=== PATIENT | female | born 1990 | race American Indian/Alaskan Native ===

== ENCOUNTER 2022-05-28 08:23 | Inpatient (IN) | payer OTHER ==
--- NOTE | 2022-05-28 09:34 | Ultrasound Report ---
US OB limited INDICATION: Cervical Length, MIKEL Pt is 22+ wks. TECHNIQUE: Transabdominal. COMPARISON: None available. FINDINGS: There is a single intrauterine . Heart Rate: 155 beats per minute. Position: breech. Amniotic Fluid Volume: normal Amniotic Fluid Index (MIKEL) in cm (if calculated): Largest pocket is 4.1 cm. Cervix: Measures 2.4 cm Low lying posterior placenta. IMPRESSION: 1. The cervix measures 2.4 cm. No funneling is seen on today's exam. Signer Name: Armani Kern MD Signed: 05/28/2022 9:30 AM Workstation Name: [id number]
[2022-05-28] MEDS ORDERED: LACTATED RINGERS 500 ML IV ONE (10:00)
[2022-05-28] MEDS ORDERED: BUPIVACAINE-EPINEPHRINE/PF 0.5%-1:200,000 (10 ML) VIAL INFILTRATI ONE (13:45)
[2022-05-28] MEDS ORDERED: LIDOCAINE 2%/EPINEPHRINE 1:200,000 VIAL (20 ML) INFILTRATI ONE (13:47)
--- NOTE | 2022-05-28 14:02 | Event Note ---
Date: 05/28/22 To patient room for SSE. Speculum placed and fluid pooling with valsalva. Fluiud collected. Dry prep +ferning and nitrazine positive. Previabel PPROM. Will consult MFM and NICU. Consider admission to observation.
--- NOTE | 2022-05-28 14:03 | History and Physical Report ---
History of Present Illness Date of examination: 05/28/22 Date of admission: 05/28/2022 Chief complaint: My water broke History of present illness: Patient is a at 22w0d presenting with LOF. Notes early this morning she noticed leakage of fluid that would not stop. Went to restroom and wiped , but noted continued fluid coming from her vagina. Denies contraction or vaginal bleeding. +FM Past History Past Medical History: no pertinent history Past Surgical History: section, D&C [employer] History: gonorrhea Family/Genetic History: hypertension, cancer Social history: single - Obstetrical History Expected Date of Delivery: 10/01/22 Actual Gestation: 22 Week(s) 0 Day(s) : 6 Hx # Term Pregnancies: 1 Number of Pregnancies: 1 Spontaneous Abortions: 1 Induced : 2 Number of Living Children: 2 Medications and Allergies Allergies Allergy/AdvReac Type Severity Reaction Status Date / Time No Known Allergies Allergy Unverified 05/28/22 09:21 Review of Systems Genitourinary: leakage of fluid - Vital Signs Vital signs: Vital Signs Pulse Pulse Ox 94 H 100 05/28/22 09:17 05/28/22 09:17 Temp Pulse Resp BP Pulse Ox 98.8 F 91 H 18 111/62 100 05/28/22 09:18 05/28/22 11:36 05/28/22 09:18 05/28/22 09:18 05/28/22 11:36 - Physical Exam Abdomen: Positive: normal appearance, soft, normal bowel sounds. Negative: distention, tenderness Genitourinary (Female): Positive: normal external genitalia Vulva: both: normal Vagina: Positive: other (pooling of fluid noted in the vault) Cervix: Positive: other (visibly dilated to 1 cm with part noted) - Obstetrical FHR: auscultation normal Uterine Contraction Pattern: Absent Results Result Diagrams: 05/28/22 18:21 All other labs normal. Assessment and Plan - Patient Problems (1) Premature rupture of membranes (PROM) affecting sixth Current Visit: Yes Status: Acute Plan to address problem: ROM + negative. MVP 4.1 cm Pooling of fluid noted on exam. Nitrazine positive. Ferning noted on Dry prep Findings reviewed with patient. Discussed is previable, meaning survival is unlikely outside of womb Reviewed with patient various outcomes including expectant management at home, possible admission for latency abx, steroids, and MgSO4, etc. Howevere plan will be dependent on findings from consultants. NICU consulted to discuss outcomes and also feasibility of resuscitation MFM consulted for further recommendations based on NICU recs (2) 22 weeks gestation of Current Visit: Yes Status: Acute
[2022-05-28] MEDS ORDERED: ACETAMINOPHEN 325 MG TAB PO PRN (16:05)
[2022-05-28] MEDS ORDERED: oxyCODONE /ACETAMINOPHEN 5-325MG TAB PO PRN (16:05)
--- NOTE | 2022-05-28 18:02 | Ultrasound Report ---
ULTRASOUND OBSTETRIC follow-up INDICATION / CLINICAL INFORMATION: NEED U/S FOR EFW.. Clinical Gestational Age (GA) in weeks, days: 22, 0 TECHNIQUE: Transabdominal. COMPARISON: Ultrasound performed earlier on 05/28/2022 which was performed to evaluate fluid index and cervix. FINDINGS: Single intrauterine . Biparietal Diameter = 5.1 cm = 21, 3 weeks, days Head Circumference = 20.2 cm = 22, 2 weeks, days Abdominal Circumference = 18.9 cm = 23, 4 weeks, days Femur Length = 3.8 cm = 23, 4 weeks, days Average Ultrasound Age (AUA) = 22, 3 weeks, days Heart Rate: 152 beats per minute. Estimated Weight in grams (if calculated): 538 Estimated Weight Growth Percentile (if calculated): 84 Position: breech. Cervix is not well visualized on this transabdominal exam. Placenta: posterior Amniotic Fluid Volume: Appears subjectively decreased IMPRESSION: 1. Single, living intrauterine with estimated sonographic age of 22, 3 weeks, days. 2. Estimated weight is 538 g Signer Name: Gama Silva MD Signed: 05/28/2022 5:58 PM Workstation Name: [id number]
[2022-05-28 18:39] LABS: Basophils # (Auto) 0.2 K/mm3 (0.0-0.1); Basophils % (Auto) 0.9 % (0.0-1.8); Eosinophils % (Auto) 0.2 % (0.0-4.3); Hematocrit 31.7 % (30.3-42.9); Hemoglobin 10.5 gm/dl (10.1-14.3); Lymphocytes # (Auto) 1.8 K/mm3 (1.2-5.4); Lymphocytes % (Auto) 10.6 % (13.4-35.0); Mean Corpuscular HGB Conc 33 % (30-34); Mean Corpuscular Volume 94 fl (79-97); Monocytes % (Auto) 5.8 % (0.0-7.3); Platelet Count 234 K/mm3 (140-440); Red Blood Count 3.38 M/mm3 (3.65-5.03); Red Cell Distribution Width 12.7 % (13.2-15.2)
--- NOTE | 2022-05-28 20:04 | Event Note ---
Date: 05/28/22 (SROM at 22 wks) Pt doing well. Denies vaginal bleeding, abdominal pain/contractions. Consult order placed and NICU aware of patient being on labor and delivery. HEALTH AND WELLNESS ADVISOR will come and speak to patient.
[2022-05-28] MEDS ORDERED: SODIUM CHLORIDE 0.9% 1000 ML 0 ML ONE (21:23)
--- NOTE | 2022-05-28 22:45 | Consultation ---
Consult Note - Parent Education I met with parent(s) and discussed the following:: Need for NICU admission, Poss ible need for intubation and surfactant or other resp support, Temperature regulation, Head ultrasounds to evaluate IVH, Eye exams for ROP screening, Possible need for IV fluids/TPN and IV antibiotics, Possible need for umbilical lines, Importance of providing breast milk & encouraged pumping aft delivery, Donor breast milk if baby meets criteria after , Slow feeding advancement and monitoring of tolerance. NG/OG feeds, Need to monitor for jaundice, Data for survival & survival without significant co-morbidities Parent(s) demonstrated understanding of all the information:: Yes Additional Comment: Spoke with mother at length. She is expecting a boy, "Ayannar". NICHD statistics calculations for extremely outcomes given to mother and explained. She verbalizes understanding. She is anticipating maternal- medicine consult tomorrow. Currently, denies contractions, reports active movement. EFW from ultrasound today is 538 gms. Assessment and Plan - Plan Plan: Agree with Mag & steroids Will attend delivery Please call NICU with questions
[2022-05-28] MEDS ORDERED: LACTATED RINGERS 1,000 ML ONE (23:10)
[2022-05-29] MEDS: diphenhydrAMINE 25 MG CAP PO PRN ×2 (00:20→21:56)
[2022-05-29 00:22] LABS: Mucus,Urine FEW /HPF
[2022-05-29 00:33] LABS: Color,Urine Yellow (Yellow)
[2022-05-29 00:34] LABS: Bilirubin,Urine Negative (Negative); Blood,Urine Negative (Negative); Protein,Urine <15 mg/dL mg/dL (Negative); Urobilinogen,Urine < 2.0 mg/dL (<2.0)
--- NOTE | 2022-05-29 06:32 | Progress Note ---
Assessment and Plan A: 32 y.o. @ 22.1 wks, PPROM. - Patient Problems (1) 22 weeks gestation of Current Visit: Yes Status: Acute Plan to address problem: Continue with antepartum surveillance. FHR Dopplers per shift. (2) Premature rupture of membranes (PROM) affecting sixth Current Visit: Yes Status: Acute Plan to address problem: Monitor maternal temperature. Awaiting AMFM evaluation. s/p NICU consult. No vaginal exams unless necessary. Subjective - Subjective Date of service: 05/29/22 Principal diagnosis: IUP @ 22.1 wks, SROM Interval history: Pt with some nausea this AM. Will medicate for nausea. Pt continues to deny vaginal bleeding, contractions. Still with some LOF. Patient reports: movement normal, no new complaints, no loss of fluid, no vaginal bleeding, no contractions Objective - Vital Signs Vital Signs: Vital Signs - 12hr 05/29/22 00:25 Temperature 98.4 F Respiratory 18 Rate O2 Sat by Pulse 98 Oximetry - Exam Breasts: deferred Cardiovascular: Regular rate Lungs: Normal air movement Abdomen: Present: soft FHR: other (FHR +) Uterine Contraction Monitor Mode: External Uterine Contraction Pattern: Absent - Labs Labs: Abnormal Labs 05/28/22 05/29/22 18:21 Unknown WBC 16.6 H RBC 3.38 L RDW 12.7 L Lymph % (Auto) 10.6 L [place] # (Auto) 1.0 H Baso # (Auto) 0.2 H Seg Neutrophils % 82.5 H Seg Neutrophils # 13.7 H Urine pH 8.0 H Laboratory Results - last 24 hr 05/28/22 05/28/22 05/28/22 09:25 18:21 23:55 WBC 16.6 H RBC 3.38 L Hgb 10.5 Hct 31.7 MCV 94 MCH 31 MCHC 33 RDW 12.7 L Plt Count 234 Lymph % (Auto) 10.6 L [place] % (Auto) 5.8 Eos % (Auto) 0.2 Baso % (Auto) 0.9 Lymph # (Auto) 1.8 [place] # (Auto) 1.0 H Eos # (Auto) 0.0 Baso # (Auto) 0.2 H Seg Neutrophils % 82.5 H Seg Neutrophils # 13.7 H Urine Color Urine Turbidity Urine pH Ur Specific [place] Urine Protein Urine Glucose (UA) Urine Ketones Urine Blood Urine Nitrite Ur Reducing Substances Urine Bilirubin Urine Ictotest Urine Urobilinogen Ur Leukocyte Esterase Urine WBC (Auto) Urine RBC (Auto) U Epithel Cells (Auto) Urine Mucus Membranes Rupture Negative Blood Type A POSITIVE Antibody Screen Negative 05/29/22 Unknown WBC RBC Hgb Hct MCV MCH MCHC RDW Plt Count Lymph % (Auto) [place] % (Auto) Eos % (Auto) Baso % (Auto) Lymph # (Auto) [place] # (Auto) Eos # (Auto) Baso # (Auto) Seg Neutrophils % Seg Neutrophils # Urine Color Yellow Urine Turbidity Clear Urine pH 8.0 H Ur Specific [place] 1.005 Urine Protein <15 mg/dl Urine Glucose (UA) Negative Urine Ketones 100 Urine Blood Negative Urine Nitrite Negative Ur Reducing Substances Not Reportable Urine Bilirubin Negative Urine Ictotest Not Reportable Urine Urobilinogen < 2.0 Ur Leukocyte Esterase Negative Urine WBC (Auto) 6.0 Urine RBC (Auto) 1.0 U Epithel Cells (Auto) 6.0 Urine Mucus Few Membranes Rupture Blood Type Antibody Screen
[2022-05-29] MEDS ORDERED: SIMETHICONE 80 MG CHEW TAB PO PRN (10:00)
[2022-05-29] MEDS: AMPICILLIN/NS 2 GM/100 ML 2 GM/100 ML BAG IV SCH ×3 (11:47→19:49)
[2022-05-29] MEDS: ERYTHROMYCIN LACTOBIONATE 250 MG in SODIUM CHLORIDE 0.9% 100 ML IV SCH ×3 (12:42→21:57)
[2022-05-29] MEDS: ONDANSETRON 4 MG/2 ML INJ IV PRN ×2 (13:38→23:16)
[2022-05-29] MEDS: ALUM-MAG HYDROXIDE-SIMETHICONE 200-200-20MG/5ML ORAL LIQD 30 ML PO PRN (13:38)
[2022-05-29] MEDS ORDERED: LACTATED RINGERS 1,000 ML ONE (13:41)
--- NOTE | 2022-05-29 16:44 | Event Note ---
Date: 05/29/[address] Hay. Will proceed with steroids in addition to antibx that have already been started. NICU plans for full reces efforts and pt desires this. Full consultation to follow. I d/w pt that should the labor progress and she remains breech, this could mean a stat c/s. Pt expressed understanding and all questions were addressed and answered.
[2022-05-29] MEDS: BETAMET ACET/BETAMET NA PH 6 MG/ML INJ 5 ML MDV IM SCH (19:41)
[2022-05-29] MEDS ORDERED: MAGNESIUM HYDROXIDE (MOM) ORAL LIQD UDC PO PRN (22:00)
[2022-05-30] MEDS: AMPICILLIN/NS 2 GM/100 ML 2 GM/100 ML BAG IV SCH ×3 (02:09→17:51)
[2022-05-30] MEDS: ERYTHROMYCIN LACTOBIONATE 250 MG in SODIUM CHLORIDE 0.9% 100 ML IV SCH ×4 (04:18→23:05)
--- NOTE | 2022-05-30 06:07 | Progress Note ---
Assessment and Plan A: 32 y.o. @ 22.2 wks, PPROM. - Patient Problems (1) 22 weeks gestation of Current Visit: Yes Status: Acute Plan to address problem: Continue with FHR per shift. (2) Premature rupture of membranes (PROM) affecting sixth Current Visit: Yes Status: Acute Plan to address problem: Continue with antibiotics as ordered. Continue to monitor maternal temperature. Steroids ordered. - # 1 dose @ 194 on 05/29. - #2 dose due @ 1940 on 05/30. s/p NICU consult. - Agree with Mag & steroids - Will attend delivery s/p AMFM consult. - Awaiting full consultation and recommendations. Subjective - Subjective Date of service: 05/30/22 Principal diagnosis: IUP @ 22.2 wks, SROM Interval history: Pt continues to deny vaginal bleeding, contractions. Still with some LOF. Patient reports: movement normal, no new complaints, no loss of fluid, no vaginal bleeding, no contractions Objective - Vital Signs Vital Signs: Vital Signs - 12hr 05/29/22 05/29/22 05/29/22 19:16 19:18 19:19 Temperature 98.7 F Pulse Rate 94 H 89 Respiratory 14 Rate Blood Pressure 102/56 Blood Pressure 102/56 [Left] O2 Sat by Pulse 95 99 Oximetry O2 Sat by Pulse Oximetry [ Posterior Bilateral Throughout] 05/29/22 05/29/22 05/29/22 19:21 19:23 19:26 Temperature Pulse Rate 92 H 95 H Respiratory Rate Blood Pressure Blood Pressure [Left] O2 Sat by Pulse 99 100 Oximetry O2 Sat by Pulse 100 Oximetry [ Posterior Bilateral Throughout] 05/29/22 05/29/22 05/29/22 19:31 19:36 19:41 Temperature Pulse Rate 97 H 108 H 105 H Respiratory Rate Blood Pressure Blood Pressure [Left] O2 Sat by Pulse 99 100 100 Oximetry O2 Sat by Pulse Oximetry [ Posterior Bilateral Throughout] 05/29/22 05/29/22 05/29/22 19:46 19:51 19:56 Temperature Pulse Rate 97 H 90 96 H Respiratory Rate Blood Pressure Blood Pressure [Left] O2 Sat by Pulse 100 100 100 Oximetry O2 Sat by Pulse Oximetry [ Posterior Bilateral Throughout] 05/29/22 05/29/22 05/30/22 23:19 23:20 04:20 Temperature 98.1 F Pulse Rate 92 H 94 H 86 Respiratory 14 Rate Blood Pressure 115/67 105/57 Blood Pressure 115/67 [Left] O2 Sat by Pulse 79 L 98 Oximetry O2 Sat by Pulse Oximetry [ Posterior Bilateral Throughout] 05/30/22 05/30/22 04:21 04:22 Temperature 98.2 F Pulse Rate 91 H 87 Respiratory 14 Rate Blood Pressure Blood Pressure 105/57 [Left] O2 Sat by Pulse 98 97 Oximetry O2 Sat by Pulse Oximetry [ Posterior Bilateral Throughout] - Exam Narrative Exam: No contractions noted on TOCO monitor. Breasts: deferred Cardiovascular: Regular rate Lungs: Normal air movement Abdomen: Present: normal appearance, soft Uterus: Present: normal FHR: other (+ FHR) Uterine Contraction Pattern: Absent - Labs Labs: Abnormal Labs 05/28/22 05/29/22 18:21 Unknown WBC 16.6 H RBC 3.38 L RDW 12.7 L Lymph % (Auto) 10.6 L [place] # (Auto) 1.0 H Baso # (Auto) 0.2 H Seg Neutrophils % 82.5 H Seg Neutrophils # 13.7 H Urine pH 8.0 H Laboratory Results - last 24 hr 05/29/22 10:40 SARS-CoV-2 (PCR) Negative
[2022-05-30] MEDS: PRENATAL VIT27-FE FUMARATE-FOLIC ACID VIT TAB PO SCH (09:51)
[2022-05-30] MEDS: ONDANSETRON 4 MG/2 ML INJ IV PRN ×2 (09:51→15:33)
[2022-05-30] MEDS: ALUM-MAG HYDROXIDE-SIMETHICONE 200-200-20MG/5ML ORAL LIQD 30 ML PO PRN (15:33)
--- NOTE | 2022-05-30 17:00 | Progress Note ---
Assessment and Plan A: IUP at 22 2/7 weeks gestation US EFW 1lb 3oz , breech ( 05/28/22) PROM suspected Cervical incompetence Low lying placenta Rec : Monitor for labor, chorioamnionitis Complete course of BMZ and latency antibiotics Growth scans q3 weeks Twice weekly testing beginning at 28 weeks gestation Assess placentation at her next growth scan Delivery at 34 weeks , sooner if indicated Reglan /phenergan prn Subjective - Subjective Date of service: 05/30/22 Principal diagnosis: IUP @ 22.2 wks, SROM Interval history: Reports N/V unresponsive to Zofran Denied abdominal pain , cramping or bleeding Patient reports: movement normal, no new complaints, no loss of fluid, no vaginal bleeding, no contractions Objective - Vital Signs Vital Signs: Vital Signs - 12hr 05/30/22 05/30/22 05/30/22 08:01 08:02 08:05 Temperature 98.3 F Pulse Rate 93 H 95 H Respiratory 14 Rate Blood Pressure 108/67 Blood Pressure 108/67 [Left] Blood Pressure [Right] O2 Sat by Pulse 100 100 Oximetry O2 Sat by Pulse 99 Oximetry [ Posterior Bilateral Throughout] 05/30/22 05/30/22 05/30/22 08:07 08:12 11:01 Temperature Pulse Rate 96 H 95 H 107 H Respiratory Rate Blood Pressure Blood Pressure [Left] Blood Pressure [Right] O2 Sat by Pulse 99 100 100 Oximetry O2 Sat by Pulse Oximetry [ Posterior Bilateral Throughout] 05/30/22 05/30/22 05/30/22 11:06 11:11 11:16 Temperature Pulse Rate 97 H 109 H 96 H Respiratory Rate Blood Pressure Blood Pressure [Left] Blood Pressure [Right] O2 Sat by Pulse 100 100 100 Oximetry O2 Sat by Pulse Oximetry [ Posterior Bilateral Throughout] 05/30/22 05/30/22 05/30/22 11:21 11:26 11:31 Temperature Pulse Rate 97 H 104 H 98 H Respiratory Rate Blood Pressure Blood Pressure [Left] Blood Pressure [Right] O2 Sat by Pulse 100 100 99 Oximetry O2 Sat by Pulse Oximetry [ Posterior Bilateral Throughout] 05/30/22 05/30/22 05/30/22 11:44 11:49 11:54 Temperature Pulse Rate 105 H 112 H 106 H Respiratory Rate Blood Pressure Blood Pressure [Left] Blood Pressure [Right] O2 Sat by Pulse 100 99 100 Oximetry O2 Sat by Pulse Oximetry [ Posterior Bilateral Throughout] 05/30/22 05/30/22 05/30/22 11:59 12:04 12:09 Temperature Pulse Rate 100 H 105 H 98 H Respiratory Rate Blood Pressure Blood Pressure [Left] Blood Pressure [Right] O2 Sat by Pulse 100 100 100 Oximetry O2 Sat by Pulse Oximetry [ Posterior Bilateral Throughout] 05/30/22 05/30/22 05/30/22 12:14 12:19 12:24 Temperature Pulse Rate 98 H 108 H 96 H Respiratory Rate Blood Pressure Blood Pressure [Left] Blood Pressure [Right] O2 Sat by Pulse 100 100 100 Oximetry O2 Sat by Pulse Oximetry [ Posterior Bilateral Throughout] 05/30/22 05/30/22 05/30/22 12:29 14:01 14:06 Temperature Pulse Rate 101 H 95 H 92 H Respiratory Rate Blood Pressure Blood Pressure [Left] Blood Pressure [Right] O2 Sat by Pulse 100 100 100 Oximetry O2 Sat by Pulse Oximetry [ Posterior Bilateral Throughout] 05/30/22 05/30/22 05/30/22 14:11 14:16 14:21 Temperature 98.1 F Pulse Rate 92 H 101 H 117 H Respiratory 16 Rate Blood Pressure 115/60 Blood Pressure [Left] Blood Pressure 115/60 [Right] O2 Sat by Pulse 100 100 100 Oximetry O2 Sat by Pulse Oximetry [ Posterior Bilateral Throughout] 05/30/22 05/30/22 05/30/22 14:26 14:31 14:36 Temperature Pulse Rate 93 H 89 90 Respiratory Rate Blood Pressure Blood Pressure [Left] Blood Pressure [Right] O2 Sat by Pulse 100 100 100 Oximetry O2 Sat by Pulse Oximetry [ Posterior Bilateral Throughout] 05/30/22 05/30/22 05/30/22 14:41 14:46 14:51 Temperature Pulse Rate 101 H 95 H 98 H Respiratory Rate Blood Pressure Blood Pressure [Left] Blood Pressure [Right] O2 Sat by Pulse 100 100 100 Oximetry O2 Sat by Pulse Oximetry [ Posterior Bilateral Throughout] 05/30/22 05/30/22 05/30/22 14:56 15:01 15:03 Temperature Pulse Rate 97 H 89 92 H Respiratory Rate Blood Pressure Blood Pressure [Left] Blood Pressure [Right] O2 Sat by Pulse 100 100 91 Oximetry O2 Sat by Pulse Oximetry [ Posterior Bilateral Throughout] 05/30/22 05/30/22 15:08 15:16 Temperature Pulse Rate 70 110 H Respiratory Rate Blood Pressure Blood Pressure [Left] Blood Pressure [Right] O2 Sat by Pulse 77 L 77 L Oximetry O2 Sat by Pulse Oximetry [ Posterior Bilateral Throughout] - Exam Narrative Exam: appears uncomfortable peripad- dried brown d/c , no blood - Labs Labs: Abnormal Labs 05/28/22 05/29/22 18:21 Unknown WBC 16.6 H RBC 3.38 L RDW 12.7 L Lymph % (Auto) 10.6 L [place] # (Auto) 1.0 H Baso # (Auto) 0.2 H Seg Neutrophils % 82.5 H Seg Neutrophils # 13.7 H Urine pH 8.0 H - Results US- obstetric: report reviewed
[2022-05-30] MEDS: METOCLOPRAMIDE 10 MG/2 ML INJ IV PRN (17:11)
[2022-05-30] MEDS ORDERED: PROMETHAZINE 25 MG TAB PO PRN (20:07)
[2022-05-30] MEDS: BETAMET ACET/BETAMET NA PH 6 MG/ML INJ 5 ML MDV IM SCH (20:20)
[2022-05-30] MEDS: PROMETHAZINE 25 MG RECT SUPP PR PRN (22:12)
[2022-05-30] MEDS: LACTATED RINGERS 1,000 ML IV SCH (23:05)
[2022-05-31] MEDS: METOCLOPRAMIDE 10 MG/2 ML INJ IV PRN ×2 (01:42→11:39)
[2022-05-31] MEDS: ONDANSETRON 4 MG/2 ML INJ IV PRN (04:33)
[2022-05-31] MEDS: AMPICILLIN/NS 2 GM/100 ML 2 GM/100 ML BAG IV SCH ×2 (04:34→12:38)
--- NOTE | 2022-05-31 05:16 | Progress Note ---
Assessment and Plan A: 32 y.o. @ 22.3 wks, PPROM. - Patient Problems (1) 22 weeks gestation of Current Visit: Yes Status: Acute Plan to address problem: doppler q 4 hrs. (2) Premature rupture of membranes (PROM) affecting sixth Current Visit: Yes Status: Acute Plan to address problem: Continue with antibiotics as ordered. Continue to monitor maternal temperature. [facility] recommendations as follows: Monitor for labor, chorioamnionitis Complete course of BMZ and latency antibiotics Growth scans q3 weeks: last completed on 05/28 1lb 3ozs. Next ordered for 06/14 Twice weekly testing beginning at 28 weeks gestation Assess placentation at her next growth scan: ordered next on 06/14 Delivery at 34 weeks , sooner if indicated Reglan /phenergan prn Subjective - Subjective Date of service: 05/31/22 Principal diagnosis: IUP @ 22.3 wks, SROM Interval history: Denies vaginal bleeding, abdominal pain/contractions/cramping. There is positive movement. Patient reports: loss of fluid, movement normal Objective - Vital Signs Vital Signs: Vital Signs - 12hr 05/30/22 05/30/22 05/30/22 17:22 17:49 20:26 Temperature 98.3 F Pulse Rate 62 84 Respiratory 14 Rate Blood Pressure 120/64 Blood Pressure 120/64 [Left] O2 Sat by Pulse 64 L 74 L 100 Oximetry O2 Sat by Pulse Oximetry [ Posterior Bilateral Throughout] 05/30/22 05/30/22 05/30/22 20:31 20:36 20:41 Temperature Pulse Rate 79 82 82 Respiratory Rate Blood Pressure Blood Pressure [Left] O2 Sat by Pulse 100 99 100 Oximetry O2 Sat by Pulse Oximetry [ Posterior Bilateral Throughout] 05/30/22 05/30/22 05/30/22 20:46 20:49 20:51 Temperature Pulse Rate 101 H 82 Respiratory Rate Blood Pressure Blood Pressure [Left] O2 Sat by Pulse 99 99 Oximetry O2 Sat by Pulse 100 Oximetry [ Posterior Bilateral Throughout] 05/30/22 05/30/22 05/30/22 20:56 21:00 21:14 Temperature Pulse Rate 82 92 H 84 Respiratory Rate Blood Pressure Blood Pressure [Left] O2 Sat by Pulse 100 93 97 Oximetry O2 Sat by Pulse Oximetry [ Posterior Bilateral Throughout] 05/30/22 05/30/22 05/30/22 21:19 21:24 21:29 Temperature Pulse Rate 83 87 83 Respiratory Rate Blood Pressure Blood Pressure [Left] O2 Sat by Pulse 100 99 99 Oximetry O2 Sat by Pulse Oximetry [ Posterior Bilateral Throughout] 05/30/22 05/30/22 05/30/22 21:34 21:39 21:44 Temperature Pulse Rate 100 H 87 83 Respiratory Rate Blood Pressure Blood Pressure [Left] O2 Sat by Pulse 98 100 99 Oximetry O2 Sat by Pulse Oximetry [ Posterior Bilateral Throughout] 05/30/22 05/30/22 05/30/22 21:49 21:54 21:59 Temperature Pulse Rate 81 84 85 Respiratory Rate Blood Pressure Blood Pressure [Left] O2 Sat by Pulse 99 98 99 Oximetry O2 Sat by Pulse Oximetry [ Posterior Bilateral Throughout] 05/30/22 05/31/22 05/31/22 22:03 01:47 01:48 Temperature 98.0 F Pulse Rate 77 96 H 96 H Respiratory 14 Rate Blood Pressure 106/61 Blood Pressure 106/61 [Left] O2 Sat by Pulse 84 99 99 Oximetry O2 Sat by Pulse Oximetry [ Posterior Bilateral Throughout] 05/31/22 05/31/22 05/31/22 01:52 01:57 02:02 Temperature Pulse Rate 98 H 86 91 H Respiratory Rate Blood Pressure Blood Pressure [Left] O2 Sat by Pulse 100 99 98 Oximetry O2 Sat by Pulse Oximetry [ Posterior Bilateral Throughout] 05/31/22 05/31/22 05/31/22 02:07 02:12 02:17 Temperature Pulse Rate 89 86 92 H Respiratory Rate Blood Pressure Blood Pressure [Left] O2 Sat by Pulse 98 99 98 Oximetry O2 Sat by Pulse Oximetry [ Posterior Bilateral Throughout] 05/31/22 05/31/22 05/31/22 02:22 02:27 02:32 Temperature Pulse Rate 96 H 85 87 Respiratory Rate Blood Pressure Blood Pressure [Left] O2 Sat by Pulse 98 99 98 Oximetry O2 Sat by Pulse Oximetry [ Posterior Bilateral Throughout] 05/31/22 05/31/22 05/31/22 02:37 02:42 02:47 Temperature Pulse Rate 97 H 88 92 H Respiratory Rate Blood Pressure Blood Pressure [Left] O2 Sat by Pulse 98 98 97 Oximetry O2 Sat by Pulse Oximetry [ Posterior Bilateral Throughout] 05/31/22 05/31/22 05/31/22 02:52 02:57 03:02 Temperature Pulse Rate 83 95 H 88 Respiratory Rate Blood Pressure Blood Pressure [Left] O2 Sat by Pulse 99 97 98 Oximetry O2 Sat by Pulse Oximetry [ Posterior Bilateral Throughout] 05/31/22 05/31/22 05/31/22 03:07 03:12 03:16 Temperature Pulse Rate 87 85 59 L Respiratory Rate Blood Pressure Blood Pressure [Left] O2 Sat by Pulse 99 98 73 L Oximetry O2 Sat by Pulse Oximetry [ Posterior Bilateral Throughout] 05/31/22 03:18 Temperature Pulse Rate 62 Respiratory Rate Blood Pressure Blood Pressure [Left] O2 Sat by Pulse 90 Oximetry O2 Sat by Pulse Oximetry [ Posterior Bilateral Throughout] - Exam Narrative Exam: Pt remains afebrile. Cardiovascular: Regular rate Lungs: Normal air movement Abdomen: Present: normal appearance, soft FHR: auscultation normal (FHR +) Uterine Contraction Monitor Mode: External (TOCO with no contractions seen.) Uterine Contraction Pattern: Absent - Labs Labs: Abnormal Labs 05/28/22 05/29/22 18:21 Unknown WBC 16.6 H RBC 3.38 L RDW 12.7 L Lymph % (Auto) 10.6 L [place] # (Auto) 1.0 H Baso # (Auto) 0.2 H Seg Neutrophils % 82.5 H Seg Neutrophils # 13.7 H Urine pH 8.0 H
[2022-05-31] MEDS: PROMETHAZINE 25 MG RECT SUPP PR PRN (06:42)
[2022-05-31] MEDS: ERYTHROMYCIN LACTOBIONATE 250 MG in SODIUM CHLORIDE 0.9% 100 ML IV SCH ×2 (06:42→13:32)
[2022-05-31] MEDS: LACTATED RINGERS 1,000 ML IV SCH (06:48)
--- NOTE | 2022-05-31 09:43 | Progress Note ---
Assessment and Plan Patient states she's aware of POC and she did her research before presenting. Stated the following: * States NICU will do everything possible to "save" her baby however this baby may b/c it's too small * States she know she (pt) needs to be monitor for signs of " "sepsis" * States she will stay here until 24weeks than possible discharge home. She was informed this baby may be born w/o a heart beat with current monitoring, she declines continuous monitoring at this time. Also discussed current staff situation. Options were reviewed. She desires to continue current POC and monitoring No s/s chorioamnionitis at this time. Steroid completed 05/30 Currently receiving Ampicillin 2gm IV q6hrs, ( 6/8doses given so far) and Erythromycin 250mg IV q6hors (6/8 doses received so far). Will start Amoxicillin 250 mg 8hr and Erythromycin 333mg q8hrs after completing IV antibiotics for total antibiotic course of 7days. Recommendations per [facility]: Monitor for labor, chorioamnionitis Complete course of BMZ (done 05/30/22)and latency antibiotics Growth scans q3 weeks Twice weekly testing beginning at 28 weeks gestation Assess placentation at her next growth scan Delivery at 34 weeks , sooner if indicated Reglan /phenergan prn - Patient Problems (1) 22 weeks gestation of Current Visit: Yes Status: Acute (2) Premature rupture of membranes (PROM) affecting sixth Current Visit: Yes Status: Acute (3) Maternal care due to low transverse uterine scar from previous delivery Current Visit: Yes Status: Acute Subjective - Subjective Date of service: 05/31/22 Principal diagnosis: IUP @ 22.3 wks, SROM Interval history: Chart and strip reviewed. Patient complains of N/V somewhat better with anitemetics Past History : 6 Term Births: 2 Premature Births: 0 Living Children: 2 Para: 2 Mult. Births: 0 Prev : 2 Aborta: 3 Elect. Ab: 2 Spont. Ab: 1 Ectopics: 0 # 1 Delivery date: 01/05/2005 Weeks Gestation: 41 Delivery type: Hours of labor: 10 Anesthesia type: epidural Delivery location: [place] Infant Sex: Female weight: 7-13 Name: Nena Comments: NRFHT # 2 Delivery date: 2009 Delivery type: EAB Comments: Medication # 3 Delivery date: 02/16/2012 Weeks Gestation: 28 labor: no Delivery type: Anesthesia type: spinal Delivery location: [place] Sex: Male weight: 6-5 Name: Aubrey # 4 Delivery date: 2015 Delivery type: EAB Comments: Required second D&C for retained products # 5 Delivery date: 12/2019 Weeks Gestation: 8 Delivery type: SAB Delivery location: [place] Comments: D&C done # 6 Weeks Gestation: - Delivery type: _ Delivery location: - Comments: - Past Medical History: Reviewed and updated today: Negative Past Medical History Past Surgical History: Reviewed and updated today: Abdominal Surgery:/ Breast Augmentation: (2019) Liposucton with fat transfer to breast (2004) (2011) D&C: (2015) EAB Required second D&C for retained products D&C: (2019) SAB Required second D&C for retained products Family History Summary: Other Family Member - Has No Family History of Ovarvian Cancer - Entered On: 02/05/2022 Other Family Member - Has No Family History of Colon Cancer - Entered On: 02/05/2022 Other Family Member - Has No Family History of Breast Cancer - Entered On: 02/05/2022 Other Family Member - Has Family History of Thyroid Disease - Entered On: 02/05/2022 Other Family Member - Has Family History of Hypertension - Entered On: 02/05/2022 Other Family Member - Has Family History of Diabetes - Entered On: 02/05/2022 Other Family Member - Has Family History of CVA or Stroke - Entered On: 02/05/2022 Other Family Member - Has Family History of Cervical Cancer - Entered On: 02/05/2022 Social History: Marital Status: Single Children: 2 Occupation: Author Smoking History: Patient has never smoked. Risk Factors: Smoked Tobacco Use: Never smoker Smokeless Tobacco Use: Never Counseled to Quit/Cut Down: yes HIV High Risk Behavior: low risk No Dietary Counseling Reason: pn yes Alcohol Use: yes Drinks per day: social Drug Use: yes Drug of Choice: marijuana DAST10 Do you abuse more than one drug at a time? No Are you always able to stop using drugs when you want to? If never use drugs, answer 'Yes'. Yes Do you ever feel bad or guilty about your drug use? If never use drugs, answer 'No'. No Have you neglected your family because of your use of drugs? No Have you engaged in illegal activities in order to obtain drugs? No Have you ever experienced withdrawal symptoms (felt sick) when you stopped taking drugs? No Have you had medical problems as a result of your drug use (e.g., memory loss, hepatitis, convulsions, bleeding, etc.)? 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 Infection History Hx of STD: gonorrhea HIV Risk Eval: low risk Hepatitis B Risk Eval: low risk Personal hx. of genital herpes: no Genetic History Congenital Heart Defect: Mom: no Dad: no Agus Disease: Mom: no Dad: no Thalassemia Mom: no Dad: no Neural Tube Defect Mom: no Dad: no Down's Syndrome Mom: no Dad: no Norris-Sachs Mom: no Dad: no Sickle Cell Disease/Trait Mom: no Dad: no Hemophilia Mom: no Dad: no Muscular Dystrophy Mom: no Dad: no Cystic Fibrosis Mom: no Dad: no [place] Chorea Mom: no Dad: no Mental Retardation Mom: no Dad: no Fragile X Mom: no Dad: no Other Genetic/Chromosomal Disorder Mom: no Dad: no Child w/other defect Mom: no Dad: no Enviromental Exposures Xray Exposure: no Medication, drug, or alcohol use since LMP: no Chemical/Other Exposure: no Exposure to Cat Liter: no Active Medications (reviewed today): None Current Allergies (reviewed today): No known allergies Patient reports: loss of fluid, movement normal, no new complaints Objective - Vital Signs Vital Signs: Vital Signs - 12hr 05/30/22 05/30/22 05/30/22 21:44 21:49 21:54 Temperature Pulse Rate 83 81 84 Respiratory Rate Blood Pressure Blood Pressure [Left] O2 Sat by Pulse 99 99 98 Oximetry 05/30/22 05/30/22 05/31/22 21:59 22:03 01:47 Temperature Pulse Rate 85 77 96 H Respiratory Rate Blood Pressure Blood Pressure [Left] O2 Sat by Pulse 99 84 99 Oximetry 05/31/22 05/31/22 05/31/22 01:48 01:52 01:57 Temperature 98.0 F Pulse Rate 96 H 98 H 86 Respiratory 14 Rate Blood Pressure 106/61 Blood Pressure 106/61 [Left] O2 Sat by Pulse 99 100 99 Oximetry 05/31/22 05/31/22 05/31/22 02:02 02:07 02:12 Temperature Pulse Rate 91 H 89 86 Respiratory Rate Blood Pressure Blood Pressure [Left] O2 Sat by Pulse 98 98 99 Oximetry 05/31/22 05/31/22 05/31/22 02:17 02:22 02:27 Temperature Pulse Rate 92 H 96 H 85 Respiratory Rate Blood Pressure Blood Pressure [Left] O2 Sat by Pulse 98 98 99 Oximetry 05/31/22 05/31/22 05/31/22 02:32 02:37 02:42 Temperature Pulse Rate 87 97 H 88 Respiratory Rate Blood Pressure Blood Pressure [Left] O2 Sat by Pulse 98 98 98 Oximetry 05/31/22 05/31/22 05/31/22 02:47 02:52 02:57 Temperature Pulse Rate 92 H 83 95 H Respiratory Rate Blood Pressure Blood Pressure [Left] O2 Sat by Pulse 97 99 97 Oximetry 05/31/22 05/31/22 05/31/22 03:02 03:07 03:12 Temperature Pulse Rate 88 87 85 Respiratory Rate Blood Pressure Blood Pressure [Left] O2 Sat by Pulse 98 99 98 Oximetry 05/31/22 05/31/22 05/31/22 03:16 03:18 06:51 Temperature 98.2 F Pulse Rate 59 L 62 Respiratory Rate Blood Pressure Blood Pressure [Left] O2 Sat by Pulse 73 L 90 Oximetry 05/31/22 05/31/22 05/31/22 06:52 06:53 06:57 Temperature Pulse Rate 80 83 96 H Respiratory Rate Blood Pressure 92/54 Blood Pressure [Left] O2 Sat by Pulse 98 100 Oximetry 05/31/22 05/31/22 05/31/22 06:58 07:02 07:11 Temperature Pulse Rate 86 88 Respiratory Rate Blood Pressure 104/56 Blood Pressure [Left] O2 Sat by Pulse 60 L 76 L Oximetry 05/31/22 05/31/22 05/31/22 07:12 07:17 07:22 Temperature Pulse Rate 74 92 H 95 H Respiratory Rate Blood Pressure Blood Pressure [Left] O2 Sat by Pulse 93 99 99 Oximetry 05/31/22 07:27 Temperature Pulse Rate 95 H Respiratory Rate Blood Pressure Blood Pressure [Left] O2 Sat by Pulse 97 Oximetry - Exam Breasts: deferred Cardiovascular: Regular rate Lungs: Normal air movement Abdomen: Present: soft. Absent: tenderness Uterus: Present: fundal height below umbilicus. Absent: tenderness FHR: other (appears appropriate for GA) Uterine Contraction Monitor Mode: External Extremities: normal - Labs Labs: Abnormal Labs 05/28/22 05/29/22 18:21 Unknown WBC 16.6 H RBC 3.38 L RDW 12.7 L Lymph % (Auto) 10.6 L [place] # (Auto) 1.0 H Baso # (Auto) 0.2 H Seg Neutrophils % 82.5 H Seg Neutrophils # 13.7 H Urine pH 8.0 H
[2022-05-31] MEDS: PRENATAL VIT27-FE FUMARATE-FOLIC ACID VIT TAB PO SCH ×2 (11:59→12:24)
[2022-05-31] MEDS: DOCUSATE SODIUM 100 MG CAP PO PRN (11:59)
[2022-05-31] MEDS ORDERED: AMPICILLIN/NS 2 GM/100 ML 2 GM/100 ML BAG IV ONE (12:26)
--- NOTE | 2022-05-31 12:48 | Event Note ---
Date: 05/31/22 Monitored x1hour appropriate FHT's for ga. No UC's.
[2022-05-31] MEDS ORDERED: METOCLOPRAMIDE 10 MG TAB PO PRN (20:11)
[2022-05-31] MEDS ORDERED: METOCLOPRAMIDE 10 MG/2 ML INJ IV SCH (23:00)
[2022-05-31] MEDS: PROMETHAZINE 12.5 MG/10 ML ORAL LIQD PO PRN (23:46)
[2022-06-01] MEDS: ERYTHROMYCIN BASE 250 MG CAPSULE DR PO SCH ×2 (00:38→09:15)
[2022-06-01] MEDS: AMOXICILLIN 250 MG CAP PO SCH ×2 (00:38→22:45)
--- NOTE | 2022-06-01 06:11 | Progress Note ---
Assessment and Plan A; 32 y.o. @ 22.4 wks, PPROM. - Patient Problems (1) 22 weeks gestation of Current Visit: Yes Status: Acute Plan to address problem: FHR q 4 hours. (2) Premature rupture of membranes (PROM) affecting sixth Current Visit: Yes Status: Acute Plan to address problem: Continue to monitor maternal temperature Recommendations per [facility]: - Monitor for labor, chorioamnionitis -Complete course of BMZ - 05/29 #1 - 05/30 #2 -Latency antibiotics - IV completed - Now on oral medication -Growth scans q3 weeks - Last completed on 05/28 1lb 3 ozs - Next ordered for 06/14 -Twice weekly testing beginning at 28 weeks gestation -Assess placentation at her next growth scan -Delivery at 34 weeks , sooner if indicated -Reglan /phenergan prn Subjective - Subjective Date of service: 06/01/22 Principal diagnosis: IUP @ 22.4 wks, SROM Interval history: Denies vaginal bleeding, abdominal pain/contractions/cramping. There is positive movement. Pt states that the LOF is minimal and it continues to be clear. Patient reports: loss of fluid, movement normal, no new complaints Objective - Vital Signs Vital Signs: Vital Signs - 12hr 05/31/22 05/31/22 06/01/22 20:11 20:33 01:14 Temperature 98.1 F Pulse Rate 78 78 Respiratory 14 Rate Blood Pressure 107/59 Blood Pressure 107/59 [Left] O2 Sat by Pulse 98 94 Oximetry O2 Sat by Pulse 98 Oximetry [ Posterior Bilateral Throughout] 06/01/22 06/01/22 06/01/22 01:15 01:20 01:25 Temperature Pulse Rate 86 91 H 88 Respiratory Rate Blood Pressure Blood Pressure [Left] O2 Sat by Pulse 98 99 99 Oximetry O2 Sat by Pulse Oximetry [ Posterior Bilateral Throughout] 06/01/22 06/01/22 06/01/22 01:30 01:35 01:40 Temperature Pulse Rate 85 83 79 Respiratory Rate Blood Pressure Blood Pressure [Left] O2 Sat by Pulse 99 97 99 Oximetry O2 Sat by Pulse Oximetry [ Posterior Bilateral Throughout] 06/01/22 06/01/22 06/01/22 01:45 01:49 01:50 Temperature Pulse Rate 79 124 H Respiratory Rate Blood Pressure Blood Pressure [Left] O2 Sat by Pulse 99 75 L 78 L Oximetry O2 Sat by Pulse Oximetry [ Posterior Bilateral Throughout] 06/01/22 06/01/22 01:54 01:55 Temperature Pulse Rate 148 H Respiratory Rate Blood Pressure Blood Pressure [Left] O2 Sat by Pulse 92 84 Oximetry O2 Sat by Pulse Oximetry [ Posterior Bilateral Throughout] - Exam Cardiovascular: Regular rate Lungs: Normal air movement Abdomen: Present: normal appearance, soft FHR: other (FHR tracing appropriate for gestational age. ) Uterine Contraction Monitor Mode: External Uterine Contraction Pattern: Absent Extremities: normal - Labs Labs: Abnormal Labs 05/28/22 05/29/22 18:21 Unknown WBC 16.6 H RBC 3.38 L RDW 12.7 L Lymph % (Auto) 10.6 L [place] # (Auto) 1.0 H Baso # (Auto) 0.2 H Seg Neutrophils % 82.5 H Seg Neutrophils # 13.7 H Urine pH 8.0 H
[2022-06-01] MEDS: PROMETHAZINE 12.5 MG/10 ML ORAL LIQD PO PRN ×2 (08:32→22:10)
--- NOTE | 2022-06-01 11:52 | Event Note ---
Date: 06/01/22 Introduced myself and patient. Discussed with patient plan of care. Patient understands expectant management and watch for signs and symptoms of infection
[2022-06-01] MEDS ORDERED: ERYTHROMYCIN BASE 250 MG CAPSULE DR PO SCH (14:00)
[2022-06-01] MEDS ORDERED: AMOXICILLIN 250 MG CAP PO SCH (14:00)
[2022-06-01] MEDS: ALUM-MAG HYDROXIDE-SIMETHICONE 200-200-20MG/5ML ORAL LIQD 30 ML PO PRN (19:17)
[2022-06-02] MEDS: PROMETHAZINE 12.5 MG/10 ML ORAL LIQD PO PRN ×2 (05:07→22:15)
[2022-06-02] MEDS: ACETAMINOPHEN 325 MG TAB PO PRN (05:10)
[2022-06-02] MEDS: ALUM-MAG HYDROXIDE-SIMETHICONE 200-200-20MG/5ML ORAL LIQD 30 ML PO PRN ×2 (09:31→18:02)
[2022-06-02] MEDS: AMOXICILLIN 250 MG CAP PO SCH (09:38)
[2022-06-02] MEDS: PRENATAL VIT27-FE FUMARATE-FOLIC ACID VIT TAB PO SCH (09:39)
--- NOTE | 2022-06-02 10:40 | Progress Note ---
Assessment and Plan - Patient Problems (1) premature rupture of membranes Current Visit: Yes Status: Acute Qualifiers: PROM onset of labor timing: unspecified duration between rupture of membranes and onset of labor Qualified Code(s): O42.919 - premature rupture of membranes, unspecified as to length of time between rupture and onset of labor, unspecified trimester Plan to address problem: Patient stable. We will continue with present management. Watch for signs and symptoms of infection or premature labor Subjective - Subjective Principal diagnosis: IUP @ 22 wks 5 days, SROM Patient reports: loss of fluid, movement normal, other (Patient states that she feels a little better today after stopping erythromycin, but is complaining of some indigestion), no new complaints Objective - Vital Signs Vital Signs: Vital Signs - 12hr 06/01/22 06/01/22 06/02/22 22:38 22:39 02:24 Temperature Pulse Rate 85 76 Blood Pressure 118/66 O2 Sat by Pulse 99 Oximetry O2 Sat by Pulse 98 Oximetry [ Posterior Bilateral Throughout] 06/02/22 06/02/22 06/02/22 02:25 02:30 02:35 Temperature 98.4 F Pulse Rate 81 76 76 Blood Pressure O2 Sat by Pulse 98 98 98 Oximetry O2 Sat by Pulse Oximetry [ Posterior Bilateral Throughout] 06/02/22 06/02/22 06/02/22 02:40 02:45 02:50 Temperature Pulse Rate 79 78 75 Blood Pressure O2 Sat by Pulse 99 98 98 Oximetry O2 Sat by Pulse Oximetry [ Posterior Bilateral Throughout] - Exam Breasts: deferred Cardiovascular: Regular rate Lungs: Normal air movement Abdomen: Present: soft Uterus: Present: normal - Labs Labs: Abnormal Labs 05/28/22 05/29/22 18:21 Unknown WBC 16.6 H RBC 3.38 L RDW 12.7 L Lymph % (Auto) 10.[address] [place] # (Auto) 1.0 H Baso # (Auto) 0.2 H Seg Neutrophils % 82.5 H Seg Neutrophils # 13.7 H Urine pH 8.0 H
--- NOTE | 2022-06-02 13:23 | Progress Note ---
Assessment and Plan IUP at 22 5/7 weeks' PPROM Previous C/S x 2 Continue expectant management EFW/MIKEL q 2 weeks Twice weekly BPP starting at 27-28 weeks' Deliver by 34 0/7 weeks' Subjective - Subjective Date of service: 06/02/22 Principal diagnosis: IUP @ 22 wks 5 days, SROM Interval history: Feeling well, fetus active; denied LOF, contractions Patient reports: loss of fluid, movement normal, other (Patient states that she feels a little better today after stopping erythromycin, but is complaining of some indigestion), no new complaints Objective - Vital Signs Vital Signs: Vital Signs - 12hr 06/02/22 06/02/22 06/02/22 02:24 02:25 02:30 Temperature 98.4 F Pulse Rate 76 81 76 Blood Pressure 118/66 O2 Sat by Pulse 98 98 Oximetry O2 Sat by Pulse Oximetry [ Posterior Bilateral Throughout] 06/02/22 06/02/22 06/02/22 02:35 02:40 02:45 Temperature Pulse Rate 76 79 78 Blood Pressure O2 Sat by Pulse 98 99 98 Oximetry O2 Sat by Pulse Oximetry [ Posterior Bilateral Throughout] 06/02/22 06/02/22 02:50 11:28 Temperature Pulse Rate 75 Blood Pressure O2 Sat by Pulse 98 Oximetry O2 Sat by Pulse 100 Oximetry [ Posterior Bilateral Throughout] - Exam Narrative Exam: Abd soft, nontender; FHT's present earlier - Labs Labs: Abnormal Labs 05/28/22 05/29/22 18:21 Unknown WBC 16.6 H RBC 3.38 L RDW 12.7 L Lymph % (Auto) 10.6 L [place] # (Auto) 1.0 H Baso # (Auto) 0.2 H Seg Neutrophils % 82.5 H Seg Neutrophils # 13.7 H Urine pH 8.0 H
[2022-06-03] MEDS: AMOXICILLIN 250 MG CAP PO SCH ×2 (02:15→10:32)
[2022-06-03] MEDS: ALUM-MAG HYDROXIDE-SIMETHICONE 200-200-20MG/5ML ORAL LIQD 30 ML PO PRN ×3 (02:24→17:28)
--- NOTE | 2022-06-03 07:40 | Progress Note ---
Assessment and Plan A: 32 y.o. @ 22.6 wks, PPROM. - Patient Problems (1) 22 weeks gestation of Current Visit: Yes Status: Acute Plan to address problem: FHR q 4 hrs. (2) Premature rupture of membranes (PROM) affecting sixth Current Visit: Yes Status: Acute Plan to address problem: Continue to monitor maternal temperature Recommendations per [facility]: - Monitor for labor, chorioamnionitis -Complete course of BMZ - 05/29 #1 - 05/30 #2 -Latency antibiotics - IV completed - Now on oral medication -Erythromycin discontinued d/t persistent nausea. -Growth scans q3 weeks - Last completed on 05/28 1lb 3 ozs - Next ordered for 06/14 -Twice weekly testing beginning at 28 weeks gestation -Assess placentation at her next growth scan -Delivery at 34 weeks , sooner if indicated -Reglan /phenergan prn Subjective - Subjective Date of service: 06/03/22 Principal diagnosis: IUP @ 22.6 wks, PPROM Interval history: Denies vaginal bleeding, abdominal pain/contractions/cramping. There is positive movement. Pt states that the LOF is minimal and it continues to be clear. Pt states her nausea is much improved since erythromycin discontinued. Patient reports: loss of fluid, movement normal, other (Patient states that she feels a little better today after stopping erythromycin, but is complaining of some indigestion), no new complaints Objective - Vital Signs Vital Signs: Vital Signs - 12hr 06/02/22 06/02/22 06/02/22 21:45 21:47 21:49 Temperature 98.7 F Pulse Rate 75 77 Respiratory 18 Rate Blood Pressure 118/58 O2 Sat by Pulse 90 100 Oximetry O2 Sat by Pulse 100 Oximetry [ Posterior Bilateral Throughout] 06/02/22 06/02/22 06/02/22 21:50 21:53 21:58 Temperature Pulse Rate 84 80 Respiratory Rate Blood Pressure O2 Sat by Pulse 83 L 99 98 Oximetry O2 Sat by Pulse Oximetry [ Posterior Bilateral Throughout] 06/02/22 06/02/22 06/02/22 22:03 22:08 22:12 Temperature Pulse Rate 81 81 167 H Respiratory Rate Blood Pressure O2 Sat by Pulse 98 100 80 L Oximetry O2 Sat by Pulse Oximetry [ Posterior Bilateral Throughout] 06/03/22 06/03/22 06/03/22 02:16 02:18 02:19 Temperature 97.9 F Pulse Rate 82 77 Respiratory Rate Blood Pressure 120/66 O2 Sat by Pulse 98 Oximetry O2 Sat by Pulse Oximetry [ Posterior Bilateral Throughout] 06/03/22 06/03/22 06/03/22 02:23 02:28 02:33 Temperature Pulse Rate 82 81 79 Respiratory Rate Blood Pressure O2 Sat by Pulse 98 97 97 Oximetry O2 Sat by Pulse Oximetry [ Posterior Bilateral Throughout] 06/03/22 06/03/22 06/03/22 02:38 06:27 06:29 Temperature 98.7 F Pulse Rate 80 101 H 101 H Respiratory Rate Blood Pressure 104/56 O2 Sat by Pulse 98 90 Oximetry O2 Sat by Pulse Oximetry [ Posterior Bilateral Throughout] 06/03/22 06/03/22 06/03/22 06:32 06:37 06:42 Temperature Pulse Rate 89 98 H 99 H Respiratory Rate Blood Pressure O2 Sat by Pulse 98 99 99 Oximetry O2 Sat by Pulse Oximetry [ Posterior Bilateral Throughout] 06/03/22 06:47 Temperature Pulse Rate 85 Respiratory Rate Blood Pressure O2 Sat by Pulse 99 Oximetry O2 Sat by Pulse Oximetry [ Posterior Bilateral Throughout] - Exam Cardiovascular: Regular rate Lungs: Normal air movement Abdomen: Present: normal appearance, soft FHR: other (FHR q 4 hrs, appropriate for gestational age. ) Uterine Contraction Monitor Mode: External Uterine Contraction Pattern: Absent Extremities: normal - Labs Labs: Abnormal Labs 05/28/22 05/29/22 18:21 Unknown WBC 16.6 H RBC 3.38 L RDW 12.7 L Lymph % (Auto) 10.6 L [place] # (Auto) 1.0 H Baso # (Auto) 0.2 H Seg Neutrophils % 82.5 H Seg Neutrophils # 13.7 H Urine pH 8.0 H
[2022-06-03] MEDS: LACTATED RINGERS 1,000 ML IV SCH (08:35)
[2022-06-03] MEDS: PROMETHAZINE 12.5 MG/10 ML ORAL LIQD PO PRN ×2 (09:24→17:53)
[2022-06-03] MEDS: PRENATAL VIT27-FE FUMARATE-FOLIC ACID VIT TAB PO SCH (10:32)
[2022-06-04 01:17] LABS: Hematocrit 35.1 % (30.3-42.9); Hemoglobin 11.3 gm/dl (10.1-14.3); Mean Corpuscular HGB Conc 32 % (30-34); Mean Corpuscular Volume 93 fl (79-97); Platelet Count 312 K/mm3 (140-440); Red Blood Count 3.78 M/mm3 (3.65-5.03); Red Cell Distribution Width 12.4 % (13.2-15.2)
[2022-06-04] MEDS: AMOXICILLIN 250 MG CAP PO SCH ×5 (03:05→19:28)
--- NOTE | 2022-06-04 07:47 | Progress Note ---
Assessment and Plan A: IUP at 22 6/7 weeks gestation US EFW 1lb 3oz , breech ( 05/28/22) PROM suspected Cervical incompetence Low lying placenta Rec : Monitor for labor, chorioamnionitis Complete course of BMZ and latency antibiotics Weekly US for MIKEL Growth scans q3 weeks Twice weekly testing beginning at 28 weeks gestation Assess the placentation at her next growth scan Delivery at 34 weeks , sooner if indicated Subjective - Subjective Date of service: 06/04/22 Principal diagnosis: IUP @ 22.6 wks, PPROM Interval history: Reports small amount of leaking , no other complaints Patient reports: loss of fluid, movement normal, other (Patient states that she feels a little better today after stopping erythromycin, but is complaining of some indigestion), no new complaints Objective - Vital Signs Vital Signs: Vital Signs - 12hr 06/03/22 06/03/22 06/03/22 23:16 23:17 23:21 Temperature 99.6 F Pulse Rate 106 H 85 95 H Respiratory Rate Blood Pressure 103/58 O2 Sat by Pulse 96 98 Oximetry O2 Sat by Pulse Oximetry [ Posterior Bilateral Throughout] 06/03/22 06/03/22 06/03/22 23:26 23:31 23:36 Temperature Pulse Rate 84 91 H 94 H Respiratory Rate Blood Pressure O2 Sat by Pulse 98 97 98 Oximetry O2 Sat by Pulse Oximetry [ Posterior Bilateral Throughout] 06/03/22 06/03/22 06/04/22 23:41 23:46 03:06 Temperature 98.2 F Pulse Rate 85 Respiratory Rate Blood Pressure O2 Sat by Pulse 96 97 Oximetry O2 Sat by Pulse Oximetry [ Posterior Bilateral Throughout] 06/04/22 06/04/22 06/04/22 03:07 03:11 03:16 Temperature 98.2 F Pulse Rate 92 H 98 H 91 H Respiratory Rate Blood Pressure 121/68 O2 Sat by Pulse 97 97 Oximetry O2 Sat by Pulse Oximetry [ Posterior Bilateral Throughout] 06/04/22 06/04/22 06/04/22 03:21 03:26 05:54 Temperature 98.5 F Pulse Rate 87 102 H Respiratory Rate Blood Pressure O2 Sat by Pulse 97 96 Oximetry O2 Sat by Pulse Oximetry [ Posterior Bilateral Throughout] 06/04/22 06/04/22 06/04/22 07:24 07:28 07:29 Temperature Pulse Rate 81 92 H 90 Respiratory Rate Blood Pressure 104/63 O2 Sat by Pulse 79 L 99 Oximetry O2 Sat by Pulse Oximetry [ Posterior Bilateral Throughout] 06/04/22 06/04/22 06/04/22 07:31 07:32 07:34 Temperature Pulse Rate 99 H 101 H Respiratory Rate Blood Pressure O2 Sat by Pulse 93 99 Oximetry O2 Sat by Pulse 99 Oximetry [ Posterior Bilateral Throughout] 06/04/22 07:39 Temperature 98.6 F Pulse Rate 101 H Respiratory 18 Rate Blood Pressure O2 Sat by Pulse 99 Oximetry O2 Sat by Pulse Oximetry [ Posterior Bilateral Throughout] - Exam Narrative Exam: laying in bed on monitor FHR: category 1 Extremities: normal - Labs Labs: Abnormal Labs 05/28/22 05/29/22 06/03/22 18:21 Unknown 23:26 WBC 16.6 H 18.5 H RBC 3.38 L RDW 12.7 L 12.4 L Lymph % (Auto) 10.6 L [place] # (Auto) 1.0 H Baso # (Auto) 0.2 H Seg Neutrophils % 82.5 H Seg Neutrophils # 13.7 H Urine pH 8.0 H Laboratory Results - last 24 hr 06/03/22 06/03/22 23:26 23:26 WBC 18.5 H RBC 3.78 Hgb 11.3 Hct 35.1 MCV 93 MCH 30 MCHC 32 RDW 12.4 L Plt Count 312 Blood Type A POSITIVE Antibody Screen Negative
--- NOTE | 2022-06-04 08:02 | Progress Note ---
<CHRISTIANO EPPERSON - Last Filed: 06/04/22 08:02> Assessment and Plan Pt resting in good spirits, reports being hungry this AM. Encouraged PO hydration. OK to shower during AM care. A: IUP at 23+0 weeks gestation US EFW 1lb 3oz , breech ( 05/28/22) PROM suspected Cervical incompetence Low lying placenta non-odorus amniotic fluid abd nontender + FM noted by pt AMFM Rec : Monitor for labor, chorioamnionitis Complete course of BMZ and latency antibiotics Weekly US for MIKEL Growth scans q3 weeks (ordered 06/14/2022) Twice weekly testing beginning at 28 weeks gestation Assess the placentation at her next growth scan Delivery at 34 weeks , sooner if indicated - Patient Problems (1) Maternal care due to low transverse uterine scar from previous delivery Current Visit: Yes Status: Acute (2) premature rupture of membranes Current Visit: Yes Status: Acute Qualifiers: PROM onset of labor timing: unspecified duration between rupture of membranes and onset of labor Qualified Code(s): O42.919 - premature rupture of membranes, unspecified as to length of time between rupture and onset of labor, unspecified trimester Subjective - Subjective Date of service: 06/04/22 Principal diagnosis: IUP @ 23+0 wks, PPROM Patient reports: loss of fluid, movement normal, no new complaints Objective - Vital Signs Vital Signs: Vital Signs - 12hr 06/03/22 06/03/22 06/03/22 23:16 23:17 23:21 Temperature 99.6 F Pulse Rate 106 H 85 95 H Respiratory Rate Blood Pressure 103/58 O2 Sat by Pulse 96 98 Oximetry O2 Sat by Pulse Oximetry [ Posterior Bilateral Throughout] 06/03/22 06/03/22 06/03/22 23:26 23:31 23:36 Temperature Pulse Rate 84 91 H 94 H Respiratory Rate Blood Pressure O2 Sat by Pulse 98 97 98 Oximetry O2 Sat by Pulse Oximetry [ Posterior Bilateral Throughout] 06/03/22 06/03/22 06/04/22 23:41 23:46 03:06 Temperature 98.2 F Pulse Rate 85 Respiratory Rate Blood Pressure O2 Sat by Pulse 96 97 Oximetry O2 Sat by Pulse Oximetry [ Posterior Bilateral Throughout] 06/04/22 06/04/22 06/04/22 03:07 03:11 03:16 Temperature 98.2 F Pulse Rate 92 H 98 H 91 H Respiratory Rate Blood Pressure 121/68 O2 Sat by Pulse 97 97 Oximetry O2 Sat by Pulse Oximetry [ Posterior Bilateral Throughout] 06/04/22 06/04/22 06/04/22 03:21 03:26 05:54 Temperature 98.5 F Pulse Rate 87 102 H Respiratory Rate Blood Pressure O2 Sat by Pulse 97 96 Oximetry O2 Sat by Pulse Oximetry [ Posterior Bilateral Throughout] 06/04/22 06/04/22 06/04/22 07:24 07:28 07:29 Temperature Pulse Rate 81 92 H 90 Respiratory Rate Blood Pressure 104/63 O2 Sat by Pulse 79 L 99 Oximetry O2 Sat by Pulse Oximetry [ Posterior Bilateral Throughout] 06/04/22 06/04/22 06/04/22 07:31 07:32 07:34 Temperature Pulse Rate 99 H 101 H Respiratory Rate Blood Pressure O2 Sat by Pulse 93 99 Oximetry O2 Sat by Pulse 99 Oximetry [ Posterior Bilateral Throughout] 06/04/22 06/04/22 07:39 07:44 Temperature 98.6 F Pulse Rate 101 H 103 H Respiratory 18 Rate Blood Pressure O2 Sat by Pulse 99 98 Oximetry O2 Sat by Pulse Oximetry [ Posterior Bilateral Throughout] - Exam Cardiovascular: Regular rate Lungs: Normal air movement Abdomen: Present: normal appearance, soft. Absent: distention, tenderness, guarding Uterus: Present: normal, fundal height above umbilicus FHR: auscultation normal Uterine Contraction Monitor Mode: Palpation Uterine Contraction Pattern: Absent Uterine Tone Measurement Phase: Resting Extremities: normal - Labs Labs: Abnormal Labs 05/28/22 05/29/22 06/03/22 18:21 Unknown 23:26 WBC 16.6 H 18.5 H RBC 3.38 L RDW 12.7 L 12.4 L Lymph % (Auto) 10.6 L [place] # (Auto) 1.0 H Baso # (Auto) 0.2 H Seg Neutrophils % 82.5 H Seg Neutrophils # 13.7 H Urine pH 8.0 H Laboratory Results - last 24 hr 06/03/22 06/03/22 23:26 23:26 WBC 18.5 H RBC 3.78 Hgb 11.3 Hct 35.1 MCV 93 MCH 30 MCHC 32 RDW 12.4 L Plt Count 312 Blood Type A POSITIVE Antibody Screen Negative <EUSEBIO,ELINA D - Last Filed: 06/04/22 16:59> Assessment and Plan US for growth scheduled for 06/18/22, MIKEL scheduled for today - Patient Problems (1) 22 weeks gestation of Current Visit: Yes Status: Acute (2) Premature rupture of membranes (PROM) affecting sixth Current Visit: Yes Status: Acute (3) Maternal care due to low transverse uterine scar from previous delivery Current Visit: Yes Status: Acute Objective - Vital Signs Vital Signs: Vital Signs - 12hr 06/04/22 06/04/22 06/04/22 05:54 07:24 07:28 Temperature 98.5 F Pulse Rate 81 92 H Respiratory Rate Blood Pressure 104/63 O2 Sat by Pulse 79 L Oximetry O2 Sat by Pulse Oximetry [ Posterior Bilateral Throughout] 06/04/22 06/04/22 06/04/22 07:29 07:31 07:32 Temperature Pulse Rate 90 99 H Respiratory Rate Blood Pressure O2 Sat by Pulse 99 93 Oximetry O2 Sat by Pulse 99 Oximetry [ Posterior Bilateral Throughout] 06/04/22 06/04/22 06/04/22 07:34 07:39 07:44 Temperature 98.6 F Pulse Rate 101 H 101 H 103 H Respiratory 18 Rate Blood Pressure O2 Sat by Pulse 99 99 98 Oximetry O2 Sat by Pulse Oximetry [ Posterior Bilateral Throughout] 06/04/22 06/04/22 06/04/22 11:57 11:58 12:01 Temperature 98.3 F Pulse Rate 82 103 H Respiratory 18 Rate Blood Pressure 105/66 O2 Sat by Pulse 87 86 100 Oximetry O2 Sat by Pulse Oximetry [ Posterior Bilateral Throughout] - Labs Labs: Abnormal Labs 05/28/22 05/29/22 06/03/22 18:21 Unknown 23:26 WBC 16.6 H 18.5 H RBC 3.38 L RDW 12.7 L 12.4 L Lymph % (Auto) 10.6 L [place] # (Auto) 1.0 H Baso # (Auto) 0.2 H Seg Neutrophils % 82.5 H Seg Neutrophils # 13.7 H Urine pH 8.0 H Laboratory Results - last 24 hr 06/03/22 06/03/22 23:26 23:26 WBC 18.5 H RBC 3.78 Hgb 11.3 Hct 35.1 MCV 93 MCH 30 MCHC 32 RDW 12.4 L Plt Count 312 Blood Type A POSITIVE Antibody Screen Negative
[2022-06-04] MEDS: PRENATAL VIT27-FE FUMARATE-FOLIC ACID VIT TAB PO SCH ×2 (11:55→16:51)
[2022-06-04] MEDS: DOCUSATE SODIUM 100 MG CAP PO PRN (16:50)
--- NOTE | 2022-06-04 19:09 | Ultrasound Report ---
Limited OB ultrasound INDICATION: MIKEL FINDINGS: Single intrauterine in breech position. Large is fluid pocket is 0.8 cm which is abnormally decreased. heart rate 1 65 bpm. IMPRESSION: Abnormal low amniotic fluid suggesting oligohydramnios Called to Nurse Paty Whitten at 6pm. Signer Name: Robel Parish MD Signed: 06/04/2022 7:04 PM Workstation Name: [id number]
[2022-06-05] MEDS: ALUM-MAG HYDROXIDE-SIMETHICONE 200-200-20MG/5ML ORAL LIQD 30 ML PO PRN ×2 (00:29→21:57)
[2022-06-05] MEDS: AMOXICILLIN 250 MG CAP PO SCH ×3 (03:04→21:56)
[2022-06-05] MEDS: ACETAMINOPHEN 325 MG TAB PO PRN ×2 (08:09→18:37)
--- NOTE | 2022-06-05 09:49 | Progress Note ---
Assessment and Plan A: IUP at 23.1 wks, PPROM - Patient Problems (1) 22 weeks gestation of Current Visit: Yes Status: Acute Plan to address problem: FHR q 4 hrs (2) Premature rupture of membranes (PROM) affecting sixth Current Visit: Yes Status: Acute Plan to address problem: Continue to monitor maternal temperature Recommendations per [facility]: - Monitor for labor, chorioamnionitis -Complete course of BMZ - 05/29 #1 - 05/30 #2 -Latency antibiotics - IV completed - Oral completed -Growth scans q3 weeks - Last completed on 05/28 1lb 3 ozs - Next ordered for 06/14 -Twice weekly testing beginning at 28 weeks gestation -Assess placentation at her next growth scan -Delivery at 34 weeks , sooner if indicated -Reglan /phenergan prn Subjective - Subjective Date of service: 06/05/22 Principal diagnosis: IUP @ 23+0 wks, PPROM Interval history: Denies vaginal bleeding, abdominal pain/contractions/cramping. There is positive movement. Had some c/o of vaginal pressure, but once she returned from the bathroom, states that the pressure is no longer there. States after restroom use, she feels much better. Patient reports: loss of fluid, movement normal, no new complaints Objective - Vital Signs Vital Signs: Vital Signs - 12hr 06/05/22 06/05/22 06/05/22 00:31 00:32 00:37 Temperature Pulse Rate 94 H 104 H 107 H Respiratory Rate Blood Pressure Blood Pressure [Left] O2 Sat by Pulse 88 98 97 Oximetry 06/05/22 06/05/22 06/05/22 00:42 00:47 00:51 Temperature 98.9 F Pulse Rate 111 H 118 H Respiratory Rate Blood Pressure Blood Pressure [Left] O2 Sat by Pulse 97 98 Oximetry 06/05/22 06/05/22 06/05/22 00:52 00:57 01:02 Temperature Pulse Rate 108 H 106 H 105 H Respiratory Rate Blood Pressure Blood Pressure [Left] O2 Sat by Pulse 97 97 97 Oximetry 06/05/22 06/05/22 06/05/22 01:07 01:12 01:17 Temperature Pulse Rate 119 H 108 H 103 H Respiratory Rate Blood Pressure Blood Pressure [Left] O2 Sat by Pulse 98 98 99 Oximetry 08/01/2206/05/22 06/05/22 01:22 01:27 05:29 Temperature Pulse Rate 104 H 107 H 126 H Respiratory Rate Blood Pressure Blood Pressure [Left] O2 Sat by Pulse 98 98 98 Oximetry 06/05/22 06/05/22 06/05/22 05:34 05:39 05:44 Temperature Pulse Rate 109 H 108 H 106 H Respiratory Rate Blood Pressure Blood Pressure [Left] O2 Sat by Pulse 98 97 97 Oximetry 06/05/22 06/05/22 06/05/22 05:49 05:54 05:59 Temperature Pulse Rate 105 H 106 H 105 H Respiratory Rate Blood Pressure Blood Pressure [Left] O2 Sat by Pulse 97 97 98 Oximetry 06/05/22 06/05/22 06/05/22 06:04 06:09 06:14 Temperature Pulse Rate 109 H 114 H 108 H Respiratory Rate Blood Pressure Blood Pressure [Left] O2 Sat by Pulse 96 98 97 Oximetry 06/05/22 06/05/22 06/05/22 06:19 06:24 06:29 Temperature Pulse Rate 121 H 106 H 108 H Respiratory Rate Blood Pressure Blood Pressure [Left] O2 Sat by Pulse 97 97 97 Oximetry 06/05/22 06/05/22 06/05/22 06:31 06:34 06:39 Temperature 98.4 F Pulse Rate 114 H 98 H Respiratory Rate Blood Pressure Blood Pressure [Left] O2 Sat by Pulse 99 100 Oximetry 06/05/22 06/05/22 06/05/22 06:44 06:49 06:54 Temperature Pulse Rate 110 H 108 H 108 H Respiratory Rate Blood Pressure Blood Pressure [Left] O2 Sat by Pulse 99 99 99 Oximetry 06/05/22 06/05/22 06/05/22 06:59 07:04 07:09 Temperature Pulse Rate 105 H 108 H 109 H Respiratory Rate Blood Pressure Blood Pressure [Left] O2 Sat by Pulse 98 97 99 Oximetry 06/05/22 06/05/22 06/05/22 07:14 07:19 07:24 Temperature Pulse Rate 106 H 107 H 104 H Respiratory Rate Blood Pressure Blood Pressure [Left] O2 Sat by Pulse 98 97 98 Oximetry 06/05/22 06/05/22 06/05/22 07:29 07:34 07:39 Temperature Pulse Rate 100 H 122 H 103 H Respiratory Rate Blood Pressure Blood Pressure [Left] O2 Sat by Pulse 99 92 98 Oximetry 06/05/22 06/05/22 06/05/22 07:44 07:49 07:54 Temperature Pulse Rate 108 H 113 H 112 H Respiratory Rate Blood Pressure Blood Pressure [Left] O2 Sat by Pulse 98 99 99 Oximetry 06/05/22 06/05/22 06/05/22 07:59 08:00 08:01 Temperature 98.1 F Pulse Rate 113 H 111 H 109 H Respiratory 16 Rate Blood Pressure 111/58 Blood Pressure 111/58 [Left] O2 Sat by Pulse 97 98 Oximetry - Exam Cardiovascular: Regular rate Abdomen: Present: normal appearance, soft Vulva: both: normal Uterus: Present: normal FHR: other (Appropriate for gestational age. ) Uterine Contraction Monitor Mode: External Uterine Contraction Pattern: Irregular Uterine Tone Measurement Phase: Resting Uterine Contraction Intensity: Mild Extremities: normal - Labs Labs: Abnormal Labs 05/28/22 05/29/22 06/03/22 18:21 Unknown 23:26 WBC 16.6 H 18.5 H RBC 3.38 L RDW 12.7 L 12.4 L Lymph % (Auto) 10.6 L [place] # (Auto) 1.0 H Baso # (Auto) 0.2 H Seg Neutrophils % 82.5 H Seg Neutrophils # 13.7 H Urine pH 8.0 H
[2022-06-05] MEDS: PRENATAL VIT27-FE FUMARATE-FOLIC ACID VIT TAB PO SCH (11:28)
[2022-06-05] MEDS: DOCUSATE SODIUM 100 MG CAP PO PRN (11:28)
[2022-06-05 12:38] LABS: Bacteria,Urine 1+ /HPF (Negative); Mucus,Urine FEW /HPF
[2022-06-05] MEDS: LACTATED RINGERS 1,000 ML IV SCH (12:38)
[2022-06-05 12:46] LABS: WBC,Urine > 182.0 /HPF (0.0-6.0)
[2022-06-05 12:50] LABS: Color,Urine Straw (Yellow)
[2022-06-05 12:51] LABS: Bilirubin,Urine Negative (Negative); Blood,Urine Large (Negative); PH,Urine 7.5 (5.0-7.0); Urobilinogen,Urine < 2.0 mg/dL (<2.0)
[2022-06-06] MEDS: AMOXICILLIN 250 MG CAP PO SCH ×3 (03:12→18:00)
--- NOTE | 2022-06-06 07:10 | Progress Note ---
Assessment and Plan Pt resting in good spirits, reports frequent urination overnight but also reports increase in thirst and water consumption. no abdominal tenderness. pt reports minimal leaking of fluid. UC pending. OK to shower during AM care. regular diet A: IUP at 23+2 weeks gestation US EFW 1lb 3oz , breech ( 05/28/22) PROM suspected Cervical incompetence Low lying placenta non-odorus amniotic fluid abd nontender + FM noted by pt AMFM Rec : Monitor for labor, chorioamnionitis Complete course of BMZ and latency antibiotics Weekly US for MIKEL (06/04 - MVP 0.8cms) Growth scans q3 weeks (ordered 06/14/2022) Twice weekly testing beginning at 28 weeks gestation Assess the placentation at her next growth scan Delivery at 34 weeks , sooner if indicated - Patient Problems (1) Maternal care due to low transverse uterine scar from previous delivery Current Visit: Yes Status: Acute (2) premature rupture of membranes Current Visit: Yes Status: Acute Qualifiers: PROM onset of labor timing: unspecified duration between rupture of membranes and onset of labor Qualified Code(s): O42.919 - premature rupture of membranes, unspecified as to length of time between rupture and onset of labor, unspecified trimester Subjective - Subjective Date of service: 06/06/22 Principal diagnosis: IUP @ 23+2 wks, PPROM Patient reports: loss of fluid, movement normal, no new complaints Objective - Vital Signs Vital Signs: Vital Signs - 12hr 06/05/22 06/05/22 06/05/22 19:54 19:55 20:41 Temperature 98.2 F Pulse Rate 136 H Blood Pressure O2 Sat by Pulse 93 Oximetry O2 Sat by Pulse 98 Oximetry [ Posterior Bilateral Throughout] 06/05/22 06/05/22 06/05/22 20:46 20:48 20:51 Temperature Pulse Rate 106 H 100 H 104 H Blood Pressure O2 Sat by Pulse 98 93 98 Oximetry O2 Sat by Pulse Oximetry [ Posterior Bilateral Throughout] 06/05/22 06/05/22 06/05/22 20:56 21:01 21:06 Temperature Pulse Rate 109 H 108 H 106 H Blood Pressure O2 Sat by Pulse 97 98 98 Oximetry O2 Sat by Pulse Oximetry [ Posterior Bilateral Throughout] 06/05/22 06/05/22 06/05/22 21:11 21:16 21:17 Temperature Pulse Rate 104 H 81 103 H Blood Pressure O2 Sat by Pulse 96 88 99 Oximetry O2 Sat by Pulse Oximetry [ Posterior Bilateral Throughout] 06/05/22 06/05/22 06/05/22 21:22 21:27 21:32 Temperature Pulse Rate 97 H 102 H 101 H Blood Pressure O2 Sat by Pulse 99 96 97 Oximetry O2 Sat by Pulse Oximetry [ Posterior Bilateral Throughout] 06/05/22 06/05/22 06/05/22 21:37 21:42 21:47 Temperature Pulse Rate 103 H 98 H 109 H Blood Pressure O2 Sat by Pulse 98 98 97 Oximetry O2 Sat by Pulse Oximetry [ Posterior Bilateral Throughout] 06/05/22 06/05/22 06/05/22 21:52 21:57 22:02 Temperature Pulse Rate 105 H 106 H 105 H Blood Pressure O2 Sat by Pulse 98 100 98 Oximetry O2 Sat by Pulse Oximetry [ Posterior Bilateral Throughout] 06/05/22 06/05/22 06/06/22 22:07 22:10 03:06 Temperature 98.9 F Pulse Rate 108 H 99 H Blood Pressure 109/58 O2 Sat by Pulse 99 Oximetry O2 Sat by Pulse Oximetry [ Posterior Bilateral Throughout] - Labs Labs: Abnormal Labs 05/28/22 05/29/22 06/03/22 18:21 Unknown 23:26 WBC 16.6 H 18.5 H RBC 3.38 L RDW 12.7 L 12.4 L Lymph % (Auto) 10.6 L [place] # (Auto) 1.0 H Baso # (Auto) 0.2 H Seg Neutrophils % 82.5 H Seg Neutrophils # 13.7 H Urine pH 8.0 H Urine Blood Urine WBC (Auto) 06/05/22 11:26 WBC RBC RDW Lymph % (Auto) [place] # (Auto) Baso # (Auto) Seg Neutrophils % Seg Neutrophils # Urine pH 7.5 H Urine Blood Large A Urine WBC (Auto) > 182.0 H Laboratory Results - last 24 hr 06/05/22 11:26 Urine Color Straw Urine Turbidity Hazy Urine pH 7.5 H Ur Specific [place] 1.005 Urine Protein 30 mg/dl Urine Glucose (UA) Negative Urine Ketones 15 Urine Blood Large A Urine Nitrite Negative Ur Reducing Substances Not Reportable Urine Bilirubin Negative Urine Ictotest Not Reportable Urine Urobilinogen < 2.0 Ur Leukocyte Esterase Large Urine WBC (Auto) > 182.0 H Urine RBC (Auto) 11.0 U Epithel Cells (Auto) 8.0 Urine Bacteria (Auto) 1+ Urine WBC Clumps 3+ Urine Mucus Few
[2022-06-06] MEDS: ACETAMINOPHEN 325 MG TAB PO PRN ×2 (07:27→14:14)
[2022-06-06] MEDS: LACTATED RINGERS 1,000 ML IV SCH ×2 (07:43→16:20)
--- NOTE | 2022-06-06 08:15 | Progress Note ---
Assessment and Plan A: IUP at 23 2/7 weeks gestation s/p BMZ and latency antibiotics US EFW 1lb 3oz ( 05/28/22) Breech PROM suspected Cervical incompetence Low lying placenta Rec : Monitor for labor, chorioamnionitis Weekly US for MIKEL Growth scans q3 weeks Twice weekly testing beginning at 28 weeks gestation Assess the placentation at her next growth scan Delivery at 34 weeks , sooner if indicated Subjective - Subjective Date of service: 06/06/22 Principal diagnosis: IUP @ 23+2 wks, PPROM Interval history: no complaints Patient reports: loss of fluid, movement normal, no new complaints Objective - Vital Signs Vital Signs: Vital Signs - 12hr 06/05/22 06/05/22 06/05/22 20:41 20:46 20:48 Temperature Pulse Rate 136 H 106 H 100 H Blood Pressure O2 Sat by Pulse 93 98 93 Oximetry 06/05/22 06/05/22 06/05/22 20:51 20:56 21:01 Temperature Pulse Rate 104 H 109 H 108 H Blood Pressure O2 Sat by Pulse 98 97 98 Oximetry 06/05/22 06/05/22 06/05/22 21:06 21:11 21:16 Temperature Pulse Rate 106 H 104 H 81 Blood Pressure O2 Sat by Pulse 98 96 88 Oximetry 06/05/22 06/05/22 06/05/22 21:17 21:22 21:27 Temperature Pulse Rate 103 H 97 H 102 H Blood Pressure O2 Sat by Pulse 99 99 96 Oximetry 06/05/22 06/05/22 06/05/22 21:32 21:37 21:42 Temperature Pulse Rate 101 H 103 H 98 H Blood Pressure O2 Sat by Pulse 97 98 98 Oximetry 06/05/22 06/05/22 06/05/22 21:47 21:52 21:57 Temperature Pulse Rate 109 H 105 H 106 H Blood Pressure O2 Sat by Pulse 97 98 100 Oximetry 06/05/22 06/05/22 06/05/22 22:02 22:07 22:10 Temperature Pulse Rate 105 H 108 H 99 H Blood Pressure 109/58 O2 Sat by Pulse 98 99 Oximetry 06/06/22 06/06/22 06/06/22 03:06 07:25 07:26 Temperature 98.9 F Pulse Rate 123 H Blood Pressure 103/58 O2 Sat by Pulse 84 93 Oximetry 06/06/22 06/06/22 06/06/22 07:57 08:03 08:05 Temperature Pulse Rate 118 H Blood Pressure O2 Sat by Pulse 87 90 98 Oximetry 06/06/22 08:10 Temperature Pulse Rate 118 H Blood Pressure O2 Sat by Pulse 99 Oximetry - Exam Narrative Exam: T98.9 Laying in bed NAD Extremities: normal - Labs Labs: Abnormal Labs 05/28/22 05/29/22 06/03/22 18:21 Unknown 23:26 WBC 16.6 H 18.5 H RBC 3.38 L RDW 12.7 L 12.4 L Lymph % (Auto) 10.6 L [place] # (Auto) 1.0 H Baso # (Auto) 0.2 H Seg Neutrophils % 82.5 H Seg Neutrophils # 13.7 H Urine pH 8.0 H Urine Blood Urine WBC (Auto) 06/05/22 11:26 WBC RBC RDW Lymph % (Auto) [place] # (Auto) Baso # (Auto) Seg Neutrophils % Seg Neutrophils # Urine pH 7.5 H Urine Blood Large A Urine WBC (Auto) > 182.0 H Laboratory Results - last 24 hr 06/05/22 11:26 Urine Color Straw Urine Turbidity Hazy Urine pH 7.5 H Ur Specific [place] 1.005 Urine Protein 30 mg/dl Urine Glucose (UA) Negative Urine Ketones 15 Urine Blood Large A Urine Nitrite Negative Ur Reducing Substances Not Reportable Urine Bilirubin Negative Urine Ictotest Not Reportable Urine Urobilinogen < 2.0 Ur Leukocyte Esterase Large Urine WBC (Auto) > 182.0 H Urine RBC (Auto) 11.0 U Epithel Cells (Auto) 8.0 Urine Bacteria (Auto) 1+ Urine WBC Clumps 3+ Urine Mucus Few - Results US- obstetric: report reviewed (06/04/22 , breech MIKEL 0.8)
[2022-06-06] MEDS: PRENATAL VIT27-FE FUMARATE-FOLIC ACID VIT TAB PO SCH (10:18)
[2022-06-06] MEDS ORDERED: ACETAMINOPHEN 325 MG TAB PO PRN ×2 (18:04→19:40)
[2022-06-06] MEDS ORDERED: propofoL 200 MG/20 ML VIAL IV ONE ×2 (19:39→19:47)
[2022-06-06] MEDS ORDERED: fentaNYL 100 MCG/2 ML INJ IV PRN (19:40)
[2022-06-06] MEDS ORDERED: NalbUPHINE 10 MG/1 ML INJ IV PRN (19:40)
[2022-06-06] MEDS ORDERED: SUCCINYLCHOLINE CHLORIDE 200 MG/10 ML INJ MDV ONE (19:41)
[2022-06-06] MEDS ORDERED: SODIUM CHLORIDE 0.9% 50 ML ONE (19:42)
[2022-06-06] MEDS ORDERED: EPINEPHrine 1 MG/10 ML SYRINGE ONE (19:57)
[2022-06-06] MEDS ORDERED: TRANEXAMIC ACID 1,000 MG/10 ML ONE (20:42)
[2022-06-06] MEDS ORDERED: OXYTOCIN 10 UNIT/1 ML INJ ONE ×4 (20:42)
[2022-06-06] MEDS ORDERED: PHENYLEPHRINE/NS 1,000 MCG/10 ML SYRINGE (OR USE) IV ONE ×2 (20:43)
--- NOTE | 2022-06-06 20:48 | Procedure Note ---
NICU Procedures NICU Procedures: Umbilical Vein Catheterization, Endotracheal Intubation (At 1951 a male was born to this patient in the OR via emergency/stat section for /breech. NB male was born with no heart beat. Apgars were 0/0/0/0/0 at 1/5/10/15/20 minutes of life. ) Procedure Notes: ATTENDANCE OF DELIVERY/ PROCEDURE/ RESUSCITATION NOTE At 1951 a male was born to this patient in the OR via emergency/stat section for /breech. NB male was born with no heart beat. Apgars were 0/0/0/0/0 at 1/5/10/15/20 minutes of life. NB male was placed on thermal wrap with mattress and double lined insulated cap for the head under a radiant warmer. No heart beat or breath sounds were detected via auscultation. PPV was started immediately at 10 seconds of life. A pulse ox was placed on the right wrist. The COORDINATE MEASURING EQUIPMENT OPERATOR, January Bernard, intubated with a 00 laryngoscope and a 2.5 uncuffed ETT by 1:30s of life. Grade 2 cord visualization with cricoid pressure. ETT secured at 6cm with CO2 change, mist in the tube, and equal breath sounds. PPV continued, chest compressions at 2 MOL. Increased FIO2 to 100%, PIP gradually increased to 28. 2 rounds of ETT epi by 11 MOL. 3.5fr UVC to 6cm placed by January SO by 13:15 of life. UVC had blood aspirate and flushed without resistance. COORDINATE MEASURING EQUIPMENT OPERATOR gave 0.1mL epi via UVC at 13:45 of life. 10/kg bolus of NS via UVC by 14:05 MOL. 0.1mL of epi via UVC at 15:55 MOL. 10mL/kg bolus of NS by 17 MOL. 0.2mL of epi via UVC by 18:30 MOL. No heart beat via auscultation by 20 MOL. Time of called by COORDINATE MEASURING EQUIPMENT OPERATOR at 20 MOL. 06/06/2022 @ 2009. January SO
[2022-06-06] MEDS ORDERED: HETASTARCH 6% 500 ML IV ONE (20:52)
[2022-06-06] MEDS ORDERED: SODIUM CHLORIDE 0.9% 1000 ML 1,000 ML ONE (20:52)
[2022-06-06] MEDS ORDERED: LACTATED RINGERS 1,000 ML ONE (20:52)
[2022-06-06] MEDS ORDERED: PHENYLEPHRINE 10 MG/1 ML INJ SDV ONE (20:52)
[2022-06-06] MEDS ORDERED: SODIUM CHLORIDE 0.9% 500 ML 500 ML IV ONE ×2 (21:01→21:02)
[2022-06-06] MEDS ORDERED: LOPERAMIDE 2 MG CAP PO PRN (21:36)
--- NOTE | 2022-06-06 21:45 | Event Note ---
Date: 06/06/22
--- NOTE | 2022-06-06 21:46 | Operative Report ---
Operative Report Operative Report: Date of Procedure: June 06, 2022 Preoperative diagnosis: IUP @23 weeks, previable premature rupture of membranes, active labor, history of x2 Postoperative diagnosis: same, s/p repeat Procedure: Classical section, lysis of adhesions Surgeon: Mesha Emery MD Lumber Racker: Dr. Josie BOLAÑOS Anesthesia: General Complications: Dense omental adhesions; retained placenta; hemorrhage QBL: 1064 ml IV Fluids: - ml UOP: 50 ml, clear urine at the end of procedure Indications: Active labor with parts in the vagina, history of x2 Findings: 550 g male in breech presentation with Apgars 0/0/0/0 Amniotic fluid none noted Fallopian tubes: Normal in appearance Ovaries normal in appearance Procedure: The patient was taken to the operating room for stat section and placed under general anesthesia. 2 g Ancef was given prior to the procedure. She was then prepped with a Betadine splash and draped in sterile fashion in the dorsal supine position. A Pfannenstiel skin incision was made with the scalpel and carried through to the rectus muscle with the scalpel. Dense scar tissue was noted and transected using the scalpel. The rectus muscles were then in the midline, and the peritoneum identified and entered bluntly. The peritoneal incision was then extended superiorly and inferiorly with good visualization of the bladder. The bladder blade was then inserted and under vertical uterine incision was made. The bladder infant was delivered via breech presentation. The cord clamped and cut and the was handed off to the waiting pediatricians.The placenta was then removed, but a 2 cm portion of a c [place] was noted to be retained. Attempts were made to remove it without success. The decision was made to close the uterus due to atony and hemorrhage. The vertical incision was closed in multiple layers using 0 Vicryl. Hemorrhage controlled after closure and hemostasis obtained. Multiple omental adhesions noted. Adhesions were doubly clamped and cut using Farris scissors and each in suture-ligated with a free tie of 0 Vicryl. Hemostasis noted uterus returned to the abdomen. The peritoneum was reapproximated using 2-0 Vicryl. The rectus muscle was reapproximated with 2-0 vicryl. The fascia was reapproximated with 0 vicryl in a running fashion. The skin was closed with 4-0 monocryl subcuticular stitch and the incision sealed with Steri-strips.The patient tolerated the procedure. Sponge, lap, needle counts correct X 2. The patient was taken to the recovery room in a stable condition.
[2022-06-06] MEDS ORDERED: HYDROmorphone 0.5 MG/0.5 ML INJ ONE (22:24)
[2022-06-06] MEDS ORDERED: MORPHINE 2 MG/1 ML INJ IV ONE (22:34)
--- NOTE | 2022-06-06 23:12 | Anesthesia Consultation ---
Anesthesia Consult and Med Hx Date of service: 06/06/22 (late entry due emergent nature of case) - Airway Anesthetic Teeth Evaluation: Good ROM Head & Neck: Adequate Mental/Hyoid Distance: Adequate Mallampati Class: Class II Intubation Access Assessment: Probably Good - Pulmonary Exam CTA: Yes - Cardiac Exam Cardiac Exam: RRR - Pre-Operative Health Status ASA Pre-Surgery Classification: ASA3, Emergency Proposed Anesthetic Plan: General Nerve Block: TAP block - Pulmonary Hx Smoking: No Hx Asthma: No - Cardiovascular System Hx Hypertension: No - Central Nervous System Hx Seizures: No CVA: No Hx Psychiatric Problems: No - Endocrine Hx Renal Disease: No Hx Liver Disease: No Hx Non-Insulin Dependent Diabetes: No Hx Hypothyroidism: No Hx Hyperthyroidism: No - Hematic Hx Anemia: No Hx Sickle Cell Disease: No - Other Systems Hx Alcohol Use: No Hx Substance Use: No Hx Cancer: No Hx Obesity: No - Additional Comments Anesthesia Medical History Comments: no hx of anesthesia complications
--- NOTE | 2022-06-06 23:13 | Anesthesia Day of Surgery ---
Anesthesia Day of Surgery - Day of Surgery Patient Examined: Yes (Late entry due to emergent nature of case) Patient H&P Reviewed: Yes Patient is NPO: No (Emergency case - RSI )
[2022-06-06] MEDS ORDERED: OXYTOCIN DRIP 30 UNITS/500 ML BAG IV SCH (23:39)
[2022-06-06] MEDS ORDERED: MORPHINE 2 MG/1 ML INJ IV PRN (23:39)
[2022-06-06] MEDS ORDERED: NALOXONE 0.4 MG/1 ML INJ IV PRN (23:39)
[2022-06-06] MEDS ORDERED: WITCH HAZEL/ GLYCERIN PAD TP PRN (23:39)
[2022-06-06] MEDS ORDERED: LANOLIN/ZINC/DIMETHICONE (LANSINOH) 7 GM TP PRN (23:39)
[2022-06-07] MEDS: MORPHINE 4 MG/1 ML INJ IV PRN ×3 (00:19→08:35)
[2022-06-07 02:01] LABS: Hematocrit 30.9 % (30.3-42.9); Hemoglobin 10.2 gm/dl (10.1-14.3); Mean Corpuscular HGB Conc 33 % (30-34); Mean Corpuscular Volume 88 fl (79-97); Platelet Count 186 K/mm3 (140-440); Red Blood Count 3.51 M/mm3 (3.65-5.03); Red Cell Distribution Width 15.2 % (13.2-15.2)
[2022-06-07 02:11] LABS: INR 1.05 (0.87-1.13); Partial Thromboplastin Time 27.2 Sec. (24.2-36.6)
[2022-06-07] MEDS ORDERED: LACTATED RINGERS 1,000 ML IV SCH (04:45)
[2022-06-07] MEDS: oxyCODONE /ACETAMINOPHEN 5-325MG TAB PO PRN (11:22)
[2022-06-07] MEDS: IBUPROFEN 600 MG TAB PO PRN ×2 (11:34→15:00)
[2022-06-07 12:25] LABS: Hematocrit 28.8 % (30.3-42.9); Hemoglobin 9.7 gm/dl (10.1-14.3)
--- NOTE | 2022-06-07 13:39 | Progress Note ---
Assessment and Plan 32 y.o. s/p rpt c/s. demise. - Patient Problems (1) Delivery by section Current Visit: Yes Status: Acute Plan to address problem: Continue pathway Encourage ambulation Incision care education D/C planning tomorrow (2) demise > 22 weeks, delivered, current hospitalization Current Visit: Yes Status: Acute Plan to address problem: Mental health assessment as needed Subjective - Subjective Date of service: 06/07/22 Principal diagnosis: S/P repeat c/s Interval history: Pt in bed on phone with mom. States working on arrangements. States waiting on support person to come to hospital before she sees baby. Patient reports: appetite normal, voiding normally, pain well controlled, ambulating normally : Objective - Vital Signs Latest vital signs: Vital Signs Temp Pulse Resp BP BP Pulse Ox Pulse Ox 06/07/22 07:41 97.9 F 97 H 18 113/71 99 06/07/22 07:20 98 06/07/22 04:30 98.2 F 98 H 18 110/69 98 06/07/22 04:14 18 06/07/22 03:44 18 06/07/22 00:49 18 06/07/22 00:19 18 06/06/22 23:30 98 F 104 H 20 99/59 99 100 06/06/22 23:00 103 H 21 97/59 98 06/06/22 22:45 102 H 16 95/57 98 06/06/22 22:30 99 H 17 107/55 97 06/06/22 22:15 100 H 14 101/52 99 06/06/22 22:00 98.1 F 101 H 20 96/47 99 06/06/22 21:45 106 H 22 98/55 99 06/06/22 21:30 108 H 20 110/51 100 06/06/22 21:25 106 H 24 109/52 100 06/06/22 21:18 98.3 F 106 H 24 109/51 06/06/22 18:30 111 H 100 06/06/22 18:25 126 H 100 06/06/22 18:20 113 H 100 06/06/22 18:15 112 H 100 06/06/22 18:10 73 76 L 06/06/22 18:09 81 L 06/06/22 17:58 76 78 L 06/06/22 17:55 79 L 06/06/22 17:53 75 79 L 06/06/22 17:48 120 H 99 06/06/22 17:43 122 H 99 06/06/22 17:38 123 H 98 06/06/22 17:33 135 H 100 06/06/22 17:28 124 H 98 06/06/22 17:23 125 H 99 06/06/22 17:18 125 H 99 06/06/22 17:13 130 H 99 06/06/22 17:08 119 H 100 06/06/22 17:03 120 H 99 06/06/22 16:59 130 H 108/61 06/06/22 16:58 134 H 100 06/06/22 16:53 120 H 94 06/06/22 16:52 85 06/06/22 16:20 99.0 F 127 H 20 111/57 85 Intake and Output 06/06/22 06/07/22 06/07/22 23:59 07:59 15:59 Intake Total 2000 360 Output Total 1000 1999 1300 Balance 1000 -1640 -1300 Intake: IV 2000 Intake, Free Water 360 Output: Urine 1000 1999 1300 Indwelling Catheter 2000 Uretheral (Mane) 300 300 Void 1000 Other: Total, Output Amount 1200 500 # Voids Void 1 - Exam Breasts: Present: normal Cardiovascular: Present: Regular rate Lungs: Present: Normal air movement Abdomen: Present: normal appearance, soft Vulva: both: normal Uterus: Present: normal, firm Extremities: Present: normal Deep Tendon Reflex Grade: Normal +2 Incision: Present: normal (No drainage or signs of infection noted), dry, intact - Labs Labs: Abnormal lab results 05/28/22 06/03/22 06/07/22 Range/Units 23:55 23:26 01:28 WBC (4.5-11.0) K/mm3 RBC (3.65-5.03) M/mm3 Hgb (10.1-14.3) gm/dl Hct (30.3-42.9) % PT (12.2-14.9) Sec. Fibrinogen (211-480) mg/dl Crossmatch See Detail See Detail See Detail 06/07/22 06/07/22 06/07/22 Range/Units 01:28 01:28 10:53 WBC 32.1 H (4.5-11.0) K/mm3 RBC 3.51 L (3.65-5.03) M/mm3 Hgb 9.7 L (10.1-14.3) gm/dl Hct 28.8 L (30.3-42.9) % PT 15.2 H (12.2-14.9) Sec. Fibrinogen 496 H (211-480) mg/dl Crossmatch
[2022-06-08] MEDS: oxyCODONE /ACETAMINOPHEN 5-325MG TAB PO PRN ×2 (04:49→10:56)
[2022-06-08 08:40] VITALS: BP 107/62
--- NOTE | 2022-06-08 10:28 | Discharge Summary ---
Providers - Providers Date of Admission: 05/28/22 23:06 Date of discharge: 06/08/22 Attending physician: FRANKLIN GRIMM MD 05/28/22 14:08 Consult to Physician [CONS] Urgent Comment: Consulting Provider: BRIDGER SAM Physician Instructions: Reason For Exam: PPROM 05/28/22 20:07 Consult to Physician [CONS] Urgent Comment: Consulting Provider: DARELL APPIAH Physician Instructions: Reason For Exam: 22 wks, SROM 06/07/22 17:35 Consult to Case Management [CONS] Routine Services Needed at Discharge: Other Notified:: yes Phone number called:: [phone] Comment:: pt requesting additional bereavement resources Primary care physician: FRANKLIN GRIMM MD Hospitalization Reason for admission: other (PPPROM) Delivery: Procedure: section Procedure details: see op notes Incision: normal, dry, intact complications: transfusion (2 units PRBC due to PPH), other Hospital course: Pt admitted for premature ROM. She was in the hospital about a week when there was progression of labor resulting in stat c/s. Pt has no c/o post op but did have 2 units of blood due to PPH. She desires d/c home today. Disposition: 01 HOME / SELF CARE / HOMELESS Plan - Provider Discharge Summary Activity: no sex for 6 weeks, no heavy lifting 4 weeks, no strenuous exercise Additional instructions: [] Smoking cessation referral if applicable(refer to patient education folder for contact #) [] Refer to [facility] Booklet Call your doctor immediately for: * Fever > 100.5 * Heavy vaginal bleeding ( >1 pad per hour) * Severe persistent headache * Shortness of breath * Reddened, hot, painful area to leg or breast * Drainage or odor from incision. * Keep incision clean and dry at all times and follow doctor's instructions regarding bathing/showering - Follow up plan Follow up: FRANKLIN GRIMM MD [Primary Care Provider] - 7 Days
== END 2022-06-08 14:15 | disposition home or self-care (01) | DRG 765 ==
LOC: EDBD 08:23 → TRG 08:23 → APU 08:25 → UNDOADMOB 16:05 → APU 16:05 → TRG 16:21 → LD 23:06 → OBSVTOIN 23:06 → OB 06-06 23:11
PROVIDERS: ADMIT Student in an Organized Health Care Education/Training Program; ATTEND Student in an Organized Health Care Education/Training Program
PROC: 10D00Z1 Extraction of Products of Conception, Low, Open Approach (ICD-10-PCS; principal; 2022-06-06)
PROC: 30233N1 Transfusion of Nonautologous Red Blood Cells into Peripheral Vein, Percutaneous Approach (ICD-10-PCS; 2022-06-06)
DX: O42.012 Preterm premature rupture of membranes, onset of labor within 24 hours of rupture, second trimester (principal); O60.12X0 Preterm labor second trimester with preterm delivery second trimester, not applicable or unspecified; O44.42 Low lying placenta NOS or without hemorrhage, second trimester; O72.1 Other immediate postpartum hemorrhage; O34.211 Maternal care for low transverse scar from previous cesarean delivery; Z20.822 Contact with and (suspected) exposure to COVID-19; Z3A.22 22 weeks gestation of pregnancy; O32.1XX0 Maternal care for breech presentation, not applicable or unspecified; O99.62 Diseases of the digestive system complicating childbirth; K66.0 Peritoneal adhesions (postprocedural) (postinfection); Z37.1 Single stillbirth
CPT/HCPCS: 36415; 76815; 76816; 81001; 84112; 85014; 85018; 85025; 85027; 85384; 85610; 85730; 86850; 86900; 86901; 86920; 87086; 87591; 88305; G0378; J3490; Q0177; J0290; J0330; J0702; J1170; J1364; J2270; J2370; J2405; J2590; J2704; J2765; J7030; J7120; P9016; Q0169; U0003

== ENCOUNTER 2022-06-13 22:37 | Emergency (ER) | payer OTHER ==
[2022-06-13 22:47] VITALS: BP 106/59
== END 2022-06-14 03:08 | disposition left against medical advice (07) ==
LOC: ED 22:37
DX: R50.9 Fever, unspecified (principal); Z53.21 Procedure and treatment not carried out due to patient leaving prior to being seen by health care provider

== ENCOUNTER 2022-06-14 10:02 | Inpatient (IN) | payer OTHER ==
[~2022-06-14 10:02] MED LIST: ALUM-MAG HYDROXIDE-SIMETHICONE 200-200-20MG/5ML ORAL LIQD 30 ML PO PRN; ONDANSETRON 4 MG/2 ML INJ IV PRN
[2022-06-14] MEDS ORDERED: LACTATED RINGERS 1000 ML IV SOLN IV SCH (12:00)
[2022-06-14 12:35] LABS: Hematocrit 25.5 % (30.3-42.9); Hemoglobin 8.2 gm/dl (10.1-14.3); Mean Corpuscular HGB Conc 32 % (30-34); Mean Corpuscular Volume 88 fl (79-97); Platelet Count 448 K/mm3 (140-440); Red Blood Count 2.91 M/mm3 (3.65-5.03); Red Cell Distribution Width 14.8 % (13.2-15.2)
[2022-06-14 14:30] LABS: Basophils % (Manual) 0 % (0.0-1.8); Eosinophils % (Manual) 0 % (0.0-4.3); Large Platelets Few; Platelet Estimate Consistent w Auto; Total Cells Counted 100
[2022-06-14] MEDS: ACETAMINOPHEN 325 MG TAB PO PRN ×2 (14:46→21:07)
[2022-06-14] MEDS: oxyCODONE /ACETAMINOPHEN 5-325MG TAB PO PRN (14:53)
--- NOTE | 2022-06-14 17:02 | History and Physical Report ---
History of Present Illness Date of examination: 06/14/22 Date of admission: 06/14/22 10:34 Chief complaint: My incision is leaking History of present illness: Patient presents POD #8 s/p RCS for wound infection. Notes last evening she checked her temperature and noticed a fever of 102. Took some ibuprofen and went to bed. States she woke up to take her temperature and was again febrile to 102. Shortly after she began to feel leaking around the site of her incision. Upon inspection she noted foul smelling fluid coming from the center of her incision.Scheduled appointment to be seen in clinin. NOtes incision continues to drain pus and is tender, but notes no increase in pain. Denies chills, chest pain, and SOB. Past History Past Surgical History: section, D&C, other (breast augmentation ) [employer] History: gonorrhea, other (septate uterus) Social history: no significant social history - Obstetrical History : 6 Medications and Allergies Allergies Allergy/AdvReac Type Severity Reaction Status Date / Time No Known Allergies Allergy Verified 06/07/22 01:54 Home Medications Medication Instructions Recorded Confirmed Last Taken Type Docusate Sodium [Colace] 100 mg PO BID PRN #60 capsule 06/08/22 Unknown Rx RX: Ferrous Sulfate [Feosol 325 MG 325 mg PO QDAY #60 tablet 06/08/22 Unknown Rx tab] RX: Ibuprofen [Motrin 800 MG tab] 800 mg PO Q8HR PRN #30 tablet 06/08/22 Unknown Rx oxyCODONE /ACETAMINOPHEN [Percocet 1 tab PO Q4HR #30 tab 06/08/22 Unknown Rx 5/325] Active Meds: Active Medications Acetaminophen (Acetaminophen 325 Mg Tab) 650 mg PO Q4H PRN PRN Reason: Pain MILD(1-3)/Fever >100.5/NOBLE Al Hydrox/Mg Hydrox/Simethicone (Alum-Mag Hydroxide-Simethicone 572-057-94bc/5ml Oral Liqd 30 Ml) 30 ml PO Q4H PRN PRN Reason: Indigestion Ibuprofen (Ibuprofen 600 Mg Tab) 800 mg PO Q6H BETH Lactated Ringer's (Lactated Ringers 1000 Ml Iv Soln) 1,000 ml IV DIRECT BETH Last Admin: 06/14/22 12:18 Dose: 1,000 ml Ondansetron HCl (Ondansetron 4 Mg/2 Ml Inj) 4 mg IV Q8H PRN PRN Reason: Nausea And Vomiting Oxycodone/Acetaminophen (Oxycodone /Acetaminophen 5-325mg Tab) 1 tab PO Q6H PRN PRN Reason: Pain, Moderate (4-6) Last Admin: 06/14/22 14:53 Dose: 1 tab Sodium Chloride (Sodium Chloride 0.9% 10 Ml Flush Syringe) 10 ml IV BID BETH Sodium Chloride (Sodium Chloride 0.9% 10 Ml Flush Syringe) 10 ml IV PRN PRN PRN Reason: LINE FLUSH Review of Systems All systems: negative Constitutional: fever Gastrointestinal: other (incisional drainage and odor) - Vital Signs Vital signs: Vital Signs Temp Pulse Resp BP Pulse Ox 98.2 F 107 H 18 106/56 98 06/14/22 10:50 06/14/22 10:50 06/14/22 10:50 06/14/22 10:50 06/14/22 10:50 Temp Pulse Resp BP Pulse Ox 98.2 F 107 H 18 106/56 98 06/14/22 10:50 06/14/22 10:50 06/14/22 10:50 06/14/22 10:50 06/14/22 10:50 - Physical Exam Abdomen: Positive: other (Pfannenstiel incision with dermabond. 3 cm central defect noted with tracking, foul smelling pus expressed; RIght lateral defect 2 cm with tracking and drainage of pus. Incision explored with pink helathy tissue and bleeding noted. Fascia intact) Extremities: Positive: normal Results Result Diagrams: 06/14/22 10:06 Abnormal lab results 06/14/22 Range/Units 10:06 WBC 32.1 H (4.5-11.0) K/mm3 RBC 2.91 L (3.65-5.03) M/mm3 Hgb 8.2 L (10.1-14.3) gm/dl Hct 25.5 L (30.3-42.9) % Plt Count 448 H (140-440) K/mm3 Seg Neuts % (Manual) 89.0 H (40.0-70.0) % Lymphocytes % (Manual) 6.0 L (13.4-35.0) % Seg Neutrophils # Man 28.6 H (1.8-7.7) K/mm3 Monocytes # (Manual) 1.6 H (0.0-0.8) K/mm3 All other labs normal. Assessment and Plan - Patient Problems (1) Wound infection following section, Current Visit: Yes Status: Acute Plan to address problem: Will start on Ancef 2 g and BActrim for antibiotic therapy Daily dressing changes Serial CBC to assess WBC Consult to case management for home health Ibuprofen and Percocet as needed for pain Tylenol as needed for fever
--- NOTE | 2022-06-14 20:22 | Event Note ---
Date: 06/14/22 Pt seen and examined. currently gauze removed and iodoform placed earlier in tact and not saturated. I advised pt that I will apply a clean abd and tape but not remove the iodoform at this time. She expressed understanding. she did c/o feeling febrile but when temp checked she was not. Will start bactrium in addition to IV antibx of ancef. Home health has been consulted. Will await recommendations this weekend. Pt expressed no questions at this time and agrees with plan of care.
[2022-06-14] MEDS: SULFAMETHOXAZOLE/TRIMETHOPRIM 800/160MG DS TAB PO SCH ×2 (21:07→21:26)
[2022-06-14] MEDS ORDERED: SULFAMETHOXAZOLE/TRIMETHOPRIM 800/160MG DS TAB PO SCH (22:00)
[2022-06-14] MEDS: diphenhydrAMINE 25 MG CAP PO PRN (22:08)
[2022-06-14] MEDS: IBUPROFEN 600 MG TAB PO SCH (22:14)
[2022-06-15] MEDS: IBUPROFEN 600 MG TAB PO SCH (06:09)
--- NOTE | 2022-06-15 06:52 | Event Note ---
Date: 06/15/22 Pt did have temp last night and did get ancef times one and bactrium po. Will make the ancef continous. Blood cultrues were not done as provider was not called and informed of pt temp and was not aware until review of her chart this am. RN made aware of adjustments made to meds. will sign out to on coming team. If temps continue should consider ID consultation.
[2022-06-15] MEDS: oxyCODONE /ACETAMINOPHEN 5-325MG TAB PO PRN (10:09)
[2022-06-15] MEDS: SULFAMETHOXAZOLE/TRIMETHOPRIM 800/160MG DS TAB PO SCH ×2 (11:18→21:50)
[2022-06-15 11:26] LABS: Hematocrit 24.9 % (30.3-42.9); Hemoglobin 8.2 gm/dl (10.1-14.3); Mean Corpuscular HGB Conc 33 % (30-34); Mean Corpuscular Volume 87 fl (79-97); Platelet Count 425 K/mm3 (140-440); Red Blood Count 2.87 M/mm3 (3.65-5.03); Red Cell Distribution Width 15.1 % (13.2-15.2)
[2022-06-15] MEDS: IBUPROFEN 800 MG TAB PO SCH ×2 (12:18→18:09)
[2022-06-15 13:56] LABS: Anisocytosis 1+; Band Neutrophils # (Manual) 0.3 K/mm3; Eosinophils % (Manual) 0 % (0.0-4.3); Platelet Estimate Consistent w Auto; Total Cells Counted 100
--- NOTE | 2022-06-15 14:50 | Progress Note ---
Assessment and Plan - Patient Problems (1) Wound infection following section, Current Visit: Yes Status: Acute Plan to address problem: Patient's last fever was at 2200 has been afebrile all day patient tolerated wound dressing change very very well with minimal tenderness. White blood blood count has decreased still elevated today patient with out any nausea or vomiting we will continue present management. Patient states did have a conversation with case management and home health care will be set up on Friday. Subjective Date of service: 06/15/22 Principal diagnosis: Wound infection Interval history: Patient denies any fever chills nausea vomiting states the pain has decreased Objective - Constitutional Vitals: Vital Signs - 12hr 06/15/22 06/15/22 06/15/22 05:47 07:36 09:04 Temperature 97.8 F 98.0 F Pulse Rate 97 H 99 H Respiratory 18 18 Rate Blood Pressure 96/52 108/56 O2 Sat by Pulse 100 100 98 Oximetry 06/15/22 12:45 Temperature 99.0 F Pulse Rate 120 H Respiratory 18 Rate Blood Pressure 104/54 O2 Sat by Pulse 99 Oximetry General appearance: Present: no acute distress - Respiratory Respiratory effort: normal - Breasts Breasts: deferred - Cardiovascular Rhythm: regular Extremities: no ischemia, pulses intact - Gastrointestinal General gastrointestinal: Present: soft, other (Wound dressing changed patient with 2 areas of wound disruption 1 in the midline and 1 to the right one midline approximately 3 cm along the right proximal 1/2 cm. Dressing changed to wet-to-dry with sterile gauze, small amount of drainage present overnight) Rectal Exam: deferred - Genitourinary Female genitourinary: deferred - Integumentary Integumentary: clear, warm, dry - Labs CBC & Chem 7: 06/15/22 10:23 Labs: Abnormal lab results 06/15/22 Range/Units 10:23 WBC 27.7 H (4.5-11.0) K/mm3 RBC 2.87 L (3.65-5.03) M/mm3 Hgb 8.2 L (10.1-14.3) gm/dl Hct 24.9 L (30.3-42.9) % Seg Neuts % (Manual) 87.0 H (40.0-70.0) % Lymphocytes % (Manual) 5.0 L (13.4-35.0) % Seg Neutrophils # Man 24.1 H (1.8-7.7) K/mm3 Monocytes # (Manual) 1.7 H (0.0-0.8) K/mm3 Basophils # (Manual) 0.3 H (0.0-0.1) K/mm3 Medications & Allergies - Medications Allergies/Adverse Reactions: Allergies No Known Allergies Allergy (Verified 06/07/22 01:54) Home Medications: Home Medications Medication Instructions Recorded Confirmed Last Taken Type Docusate Sodium [Colace] 100 mg PO BID PRN #60 capsule 06/08/22 Unknown Rx Ferrous Sulfate [Feosol 325 MG tab] 325 mg PO QDAY #60 tablet 06/08/22 Unknown Rx Ibuprofen [Motrin 800 MG tab] 800 mg PO Q8HR PRN #30 tablet 06/08/22 Unknown Rx oxyCODONE /ACETAMINOPHEN [Percocet 1 tab PO Q4HR #30 tab 06/08/22 Unknown Rx 5/325] Active Medications: Generic Name Dose Route Start Last Admin Trade Name Freq PRN Reason Stop Dose Admin Acetaminophen 650 mg 06/14/22 10:00 06/14/22 21:07 Acetaminophen 325 Mg Tab PO 650 mg Q4H PRN Administration Pain MILD(1-3)/Fever >100.5/NOBLE Al Hydrox/Mg Hydrox/Simethicone 30 ml 06/14/22 10:00 Alum-Mag Hydroxide-Simethicone [phone]/5ml Oral Liqd 30 Ml PO Q4H PRN Indigestion Diphenhydramine HCl 25 mg 06/14/22 20:17 06/14/22 22:08 Diphenhydramine 25 Mg Cap PO 25 mg QHS PRN Administration Sleep Cefazolin Sodium 2 gm/ Sodium 100 mls @ 200 mls/hr 06/15/22 06:45 06/15/22 08:44 Chloride IV 200 mls/hr Q8H BETH Administration Protocol Ibuprofen 800 mg 06/15/22 13:00 06/15/22 12:18 Ibuprofen 800 Mg Tab PO 800 mg Q6H BETH Administration Lactated Ringer's 1,000 ml 06/14/22 12:00 06/14/22 12:18 Lactated Ringers 1000 Ml Iv Soln IV 1,000 ml DIRECT BETH Administration Ondansetron HCl 4 mg 06/14/22 10:00 Ondansetron 4 Mg/2 Ml Inj IV Q8H PRN Nausea And Vomiting Oxycodone/Acetaminophen 1 tab 06/14/22 10:00 06/15/22 10:09 Oxycodone /Acetaminophen 5-325mg Tab PO 1 tab Q6H PRN Administration Pain, Moderate (4-6) Sodium Chloride 10 ml 06/14/22 22:00 06/14/22 21:08 Sodium Chloride 0.9% 10 Ml Flush Syringe IV 10 ml BID BETH Administration Sodium Chloride 10 ml 06/14/22 10:00 Sodium Chloride 0.9% 10 Ml Flush Syringe IV PRN PRN LINE FLUSH Trimethoprim/Sulfamethoxazole 1 each 06/14/22 20:30 06/15/22 11:18 Sulfamethoxazole/Trimethoprim 800/160mg Ds Tab PO 1 each Q12HR BETH Administration Protocol
[2022-06-15] MEDS: diphenhydrAMINE 25 MG CAP PO PRN (21:50)
[2022-06-16] MEDS: IBUPROFEN 800 MG TAB PO SCH ×4 (01:52→21:23)
[2022-06-16] MEDS: ACETAMINOPHEN 325 MG TAB PO PRN (07:05)
[2022-06-16] MEDS: SULFAMETHOXAZOLE/TRIMETHOPRIM 800/160MG DS TAB PO SCH ×2 (09:46→21:24)
--- NOTE | 2022-06-16 10:45 | Progress Note ---
Assessment and Plan A: 32 y.o. s/p rpt , POD #10. Would infection. - Patient Problems (1) Wound infection following section, Current Visit: Yes Status: Acute Plan to address problem: Continue with antibiotics as ordered. Continue with dressing changes. Continue to monitor maternal temperatures. - If any spikes in temperature may consider ID consult. Wound fdc health ordered: once established may be discharged home. - Home health anticipated to be established on 06/17. Subjective - Subjective Date of service: 06/16/22 Principal diagnosis: Wound infection, s/p rpt , POD # 10 Interval history: Pt doing well. States no pain. Incision has been draining and per pt has an odor . Pt denies chills, nausea, vomiting. Patient reports: appetite normal, voiding normally, pain well controlled, flatus, ambulating normally : Objective - Vital Signs Latest vital signs: Vital Signs Temp Pulse Resp BP Pulse Ox 06/16/22 08:30 98 06/16/22 07:55 98.3 F 110 H 18 101/57 99 06/16/22 04:45 98.0 F 106 H 18 98/51 100 06/16/22 00:06 97.8 F 105 H 18 97/54 100 06/15/22 20:00 98 06/15/22 19:53 98.3 F 125 H 18 106/54 100 06/15/22 17:35 98.4 F 115 H 18 99/55 99 06/15/22 12:45 99.0 F 120 H 18 104/54 99 Intake and Output 06/15/22 06/16/22 06/16/22 22:59 06:59 14:59 Intake Total 1070 100 Balance 1070 100 Intake: IV 100 100 ceFAZolin 2 GM In NaCl 0. 100 100 9% 100 ml @ 200 mls/hr IV Q8H [facility] Rx#:[id number] Oral 490 Intake, Free Water 480 Other: Total, Intake Amount 250 Voiding Method Toilet Toilet # Voids Void 2 - Exam Narrative Exam: Pt is currently afebrile. Cardiovascular: Present: Regular rate Lungs: Present: Normal air movement Abdomen: Present: normal appearance, soft Comments: Incision: dressing removed. Odor noted and a large amount of green drainage noted. In the middle of the incision there is a 3 cm opening that was packed with sterile wet gauze. The bed of this opening was pink. On the right side of the incision there is a 1cm opening. The bed of this opening is pink. This 1cm opening was packed with sterile wet gauze. On top of the incision with 5 sterile gauze and ABDs. - Labs Labs: Abnormal lab results 06/15/22 Range/Units 10:23 WBC 27.7 H (4.5-11.0) K/mm3 RBC 2.87 L (3.65-5.03) M/mm3 Hgb 8.2 L (10.1-14.3) gm/dl Hct 24.9 L (30.3-42.9) % Seg Neuts % (Manual) 87.0 H (40.0-70.0) % Lymphocytes % (Manual) 5.0 L (13.4-35.0) % Seg Neutrophils # Man 24.1 H (1.8-7.7) K/mm3 Monocytes # (Manual) 1.7 H (0.0-0.8) K/mm3 Basophils # (Manual) 0.3 H (0.0-0.1) K/mm3
[2022-06-16] MEDS: DOCUSATE SODIUM 100 MG CAP PO SCH ×2 (12:36→23:26)
[2022-06-17] MEDS: IBUPROFEN 800 MG TAB PO SCH ×3 (04:18→23:58)
--- NOTE | 2022-06-17 08:00 | Progress Note ---
Assessment and Plan afebrile x 48hrs, pt in good spirits, looking forward to d/c once home healthcare established - Patient Problems (1) Wound infection following section, Current Visit: Yes Status: Acute Plan to address problem: Continue with antibiotics as ordered. Continue with dressing changes. Continue to monitor maternal temperatures. - If any spikes in temperature may consider ID consult. Wound usp health ordered: once established may be discharged home. - Home health anticipated to be established today (06/17). Subjective - Subjective Date of service: 06/17/22 Principal diagnosis: Wound infection, s/p rpt , POD # 11 Patient reports: appetite normal, voiding normally, pain well controlled, ambulating normally Objective - Vital Signs Latest vital signs: Vital Signs Temp Pulse Resp BP Pulse Ox 06/17/22 04:21 98.4 F 100 H 20 98/62 99 06/16/22 23:44 98.0 F 99 H 20 104/59 99 06/16/22 20:40 98 06/16/22 19:37 98.2 F 103 H 20 99/57 99 06/16/22 17:18 97.9 F 109 H 18 100/54 100 06/16/22 08:30 98 Intake and Output 06/16/22 06/17/22 06/17/22 23:59 07:59 15:59 Intake Total 340 Balance 340 Intake: IV 100 ceFAZolin 2 GM In NaCl 0. 100 9% 100 ml @ 200 mls/hr IV Q8H [facility] Rx#:[id number] Oral 240 Other: Total, Intake Amount 240 Voiding Method Toilet # Voids Void 1 1 - Exam Breasts: Present: normal Abdomen: Present: normal appearance, soft. Absent: tenderness, guarding Extremities: Present: normal Incision: Present: normal, dry, dressed (dressing clean and dry with 2in silk tape)
[2022-06-17] MEDS: DOCUSATE SODIUM 100 MG CAP PO SCH ×2 (10:00→22:10)
[2022-06-17] MEDS: SULFAMETHOXAZOLE/TRIMETHOPRIM 800/160MG DS TAB PO SCH ×2 (10:02→22:10)
[2022-06-17] MEDS: oxyCODONE /ACETAMINOPHEN 5-325MG TAB PO PRN (18:13)
--- NOTE | 2022-06-17 20:03 | Event Note ---
Date: 06/17/22 (late entry. pt seen at 1400pm) Pt seen and evaluated. old dressing removed. packing removed. yellow tnged but no drainage on exam. good granulation tissue noted with some bleeding. area irrigated with sterile water. Gauze dressing packing placed that was moist. abd placed with tape. Pt tolearted the dressing change well.All questions were addr essed and answered.
--- NOTE | 2022-06-18 08:11 | Progress Note ---
Assessment and Plan A: 32 y.o. Wound infection, s/p rpt , POD # 12 - Patient Problems (1) Wound infection following section, Current Visit: Yes Status: Acute Plan to address problem: Continue with dressing changes: will change this afternoon. Continue with antibiotics. - Will be discharged home on PO. Continue to monitor maternal temperatures. Home health established. - Awaiting time on 06/19 that they will see patient. Anticipate discharge home on today or 06/19 in AM. Subjective - Subjective Date of service: 06/18/22 Principal diagnosis: Wound infection, s/p rpt , POD # 12 Interval history: Pt doing well. In good spirits. Discussed plan: [employer] company has stated that they will see patient on 06/19. No time established yet. We discussed will discharge home once time established. We will also change dressing later on this afternoon. Pt aware and agrees to plan. Patient reports: appetite normal, voiding normally, pain well controlled, ambulating normally [place]: Objective - Vital Signs Latest vital signs: Vital Signs Temp Pulse Resp BP BP Pulse Ox 06/18/22 04:06 98.0 F 82 18 96/53 98 06/18/22 00:09 97.9 F 98 H 20 94/50 99 06/17/22 21:50 99 06/17/22 20:03 97.8 F 18 101/52 06/17/22 20:00 99 H 06/17/22 15:30 98.2 F 98 H 20 100/59 100 06/17/22 13:25 98.2 F 93 H 20 100/59 99 06/17/22 09:59 98.2 F 91 H 20 96/61 99 Intake and Output 06/17/22 06/18/22 06/18/22 22:59 06:59 14:59 Intake Total 1020 Balance 1020 Intake: IV 100 ceFAZolin 2 GM In NaCl 0. 100 9% 100 ml @ 200 mls/hr IV Q8H [facility] Rx#:[id number] Oral 720 Intake, Free Water 200 Other: Total, Intake Amount 360 Voiding Method Toilet # Voids Void 1 1 - Exam Narrative Exam: Dressing in place. Some drainage noted. No odor noted. Dressing reinforced. Cardiovascular: Present: Regular rate Lungs: Present: Normal air movement Abdomen: Present: normal appearance, soft Extremities: Present: normal Incision: Present: dressed (A small amount of drainage noted. )
[2022-06-18] MEDS: IBUPROFEN 800 MG TAB PO SCH ×4 (08:40→17:42)
[2022-06-18] MEDS: SULFAMETHOXAZOLE/TRIMETHOPRIM 800/160MG DS TAB PO SCH (10:16)
[2022-06-18] MEDS: DOCUSATE SODIUM 100 MG CAP PO SCH (10:16)
--- NOTE | 2022-06-18 12:59 | Discharge Summary ---
Providers - Providers Date of Admission: 06/14/22 10:34 Date of discharge: 06/18/22 Attending physician: FRANKLIN GRIMM MD 06/14/22 Consult to Case Management [CONS] Routine Services Needed at Discharge: Home Health Services Notified:: computer input Phone number called:: [phone] Time called:: 10:59 Additional Physician Instructions: Patient will need wound dressing changes Primary care physician: DARIAN GIBSON Hospitalization Reason for admission: other (Incision infection. ) Pertinent studies: Spoke with social workers and home health care has been established and confirmed. Pt has established wound care that will be coming for a home evaluation on 06/19. Dressing changed today. Both wound bed areas, 1 cm on right side, and 3 cm in the middle of the incision are pink with no s/sx of infection noted. Some drainage noted. No odor noted. Wet to dry dressing change with normal saline to both areas. Re dressed with 4X4 gauze and ABDs. Home health orders placed for wet to dry dressing changes. She is also aware of antibiotics, Keflex, and Bactrim, needed as prescribed. Hospital course: S: Pt doing well and in good spirits. Denies pain, fever, chills, nausea/vomiting. O: Incision: dressing changed as charted. VSS. Pt has been afebrile. Adequate I&O's. A: 32 y.o. incision infection after a . In good condition. P: Discharge home with instructions. Pt to come to office in [place] on 06/21 @ 0900am for incision check. After 06/21 0900 am appointment, weekly incision checks will be established. Condition at discharge: Good Disposition: 01 HOME / SELF CARE / HOMELESS - Discharge Diagnoses (1) Wound infection following section, Status: Acute Plan - Discharge Medications Prescriptions: Sulfamethoxazole/Trimethoprim [Bactrim DS TAB] 1 each PO BID #14 cephALEXin [Keflex] 500 mg PO Q12HR #28 cap - Provider Discharge Summary Activity: routine, no sex for 6 weeks, no heavy lifting 4 weeks, no strenuous exercise Diet: routine Instructions: routine Additional instructions: [] Smoking cessation referral if applicable(refer to patient education folder for contact #) [] Refer to [facility]'s [facility] Booklet Call your doctor immediately for: * Fever > 100.5 * Heavy vaginal bleeding ( >1 pad per hour) * Severe persistent headache * Shortness of breath * Reddened, hot, painful area to leg or breast * Drainage or odor from incision. * Keep incision clean and dry at all times and follow doctor's instructions regarding bathing/showering - Follow up plan Follow up: DARIAN GIBSON MD [Primary Care Provider] - 7 Days FRANKLIN GRIMM MD [Staff Physician] - 7 Days (- Thank you for allowing us to take care of you! - Please keep your scheduled appointment on 06/21/2022 @ 0900 am. - You will need to be seen weekly in the clinic for incision checks. We will discuss this schedule when you come to your appointment on 06/21. - Please take antibiotics as prescribed. - If you have any questions or concerns after discharge, please call the office at . )
[2022-06-18] MEDS ORDERED: miSOPROStol 200 MCG TAB ONE (18:33)
--- NOTE | 2022-06-18 18:42 | Event Note ---
Date: 06/18/22 Called to patient room for bleeding. Notes only scant bleeding throughout entire admission. Had been up out of bed moving around for the first time to get dressed, etc. preparing for d/c. Notes saturating pad and toilet with watery blood. After which she passed a clot. On SSE scant watery dark blood noted. Cervix WNL with small dark clot at the os. Fnndus firm. Cytoec 800 mcg [place] given. Will continue to monitor. If no further bleeding will consider D/C home.
[2022-06-18] MEDS ORDERED: miSOPROStol 200 MCG TAB PR ONE (19:00)
[2022-06-18 20:47] VITALS: BP 114/49
== END 2022-06-18 20:30 | disposition home health service (06) | DRG 776 ==
LOC: UNDOADMIN 10:02 → 3A 10:02 → OB 10:34
PROVIDERS: ADMIT Student in an Organized Health Care Education/Training Program; ATTEND Student in an Organized Health Care Education/Training Program
DX: O86.09 Infection of obstetric surgical wound, other surgical site (principal); Z20.822 Contact with and (suspected) exposure to COVID-19
CPT/HCPCS: 36415; 85007; 85025; G0378; J0690; J7120; U0003

== ENCOUNTER 2022-07-12 13:07 | Outpatient (CLI) | payer OTHER ==
[2022-07-12] MEDS ORDERED: LIDOCAINE (4%) 40 MG/ML TOPICAL SOLN 50 ML BOTTLE TP ONE (13:40)
== END 2022-07-12 13:08 | disposition home or self-care (01) ==
LOC: WOUND 13:07
PROVIDERS: ATTEND Surgery
DX: T81.89XA Other complications of procedures, not elsewhere classified, initial encounter (principal); S31.109A Unspecified open wound of abdominal wall, unspecified quadrant without penetration into peritoneal cavity, initial encounter; Z87.891 Personal history of nicotine dependence; Z79.899 Other long term (current) drug therapy; X58.XXXA Exposure to other specified factors, initial encounter; Y83.8 Other surgical procedures as the cause of abnormal reaction of the patient, or of later complication, without mention of misadventure at the time of the procedure; Y92.238 Other place in hospital as the place of occurrence of the external cause; Y93.89 Activity, other specified; Y92.89 Other specified places as the place of occurrence of the external cause; Y99.8 Other external cause status
CPT/HCPCS: 99215; G0463

== ENCOUNTER 2022-07-19 08:36 | Outpatient (CLI) | payer OTHER ==
[2022-07-19] MEDS ORDERED: LIDOCAINE (4%) 40 MG/ML TOPICAL SOLN 50 ML BOTTLE TP SCH (09:00)
== END 2022-07-19 08:37 | disposition home or self-care (01) ==
LOC: WOUND 08:36
PROVIDERS: ATTEND Surgery
DX: T81.89XD Other complications of procedures, not elsewhere classified, subsequent encounter (principal); S31.109D Unspecified open wound of abdominal wall, unspecified quadrant without penetration into peritoneal cavity, subsequent encounter; Z87.891 Personal history of nicotine dependence; Z79.899 Other long term (current) drug therapy; X58.XXXD Exposure to other specified factors, subsequent encounter; Y83.8 Other surgical procedures as the cause of abnormal reaction of the patient, or of later complication, without mention of misadventure at the time of the procedure
CPT/HCPCS: 99212; G0463

== ENCOUNTER 2022-08-02 08:59 | Outpatient (CLI) | payer OTHER | END 2022-08-02 09:00 | disposition home or self-care (01) | LOC: WOUND 08:59 | PROVIDERS: ATTEND Surgery | DX: T81.89XD Other complications of procedures, not elsewhere classified, subsequent encounter (principal); S31.109D Unspecified open wound of abdominal wall, unspecified quadrant without penetration into peritoneal cavity, subsequent encounter; Z87.891 Personal history of nicotine dependence; Z79.899 Other long term (current) drug therapy; X58.XXXD Exposure to other specified factors, subsequent encounter; Y83.8 Other surgical procedures as the cause of abnormal reaction of the patient, or of later complication, without mention of misadventure at the time of the procedure | CPT/HCPCS: 99214; G0463 ==